=== PATIENT | female | born 1960 | race Hispanic/Latino ===

== ENCOUNTER 2024-04-06 15:22 | Inpatient (IN) | payer OTHER, MEDICAID ==
[~2024-04-06] VITALS: Ht 160 cm; Wt 73.4 kg
[2024-04-06 16:51] LABS: BASOPHILS # (AUTO) 0.03 K/uL (0.00-0.20); BASOPHILS % (AUTO) 0.3 % (0.0-5.0); EOSINOPHILS # (AUTO) 0.35 K/uL (0.00-0.70); HEMATOCRIT 34.1 % (36-48); IMMATURE GRANULOCYTE ABSOLUTE 0.04 K/uL (0-1); LYMPHOCYTES # (AUTO) 1.1 K/uL (1.0-4.8); LYMPHOCYTES % (AUTO) 12.7 % (21.0-51.0); MEAN CORPUSCULAR HEMOGLOBIN 24.9 pg (27.0-33.0); MEAN CORPUSCULAR HGB CONC 31.4 g/dL (32.0-36.0); MEAN CORPUSCULAR VOLUME 79.5 fL (79-99); MONOCYTES # (AUTO) 0.5 K/uL (0.1-1.0); MONOCYTES % (AUTO) 5.7 % (3.0-13.0); NEUTROPHILS # (AUTO) 6.8 K/uL (1.8-7.7); NEUTROPHILS % (AUTO) 76.8 % (40.0-77.0); PLATELET COUNT (AUTO) 292 K/uL (130-400); RED BLOOD CELL COUNT(AUTO) 4.29 MIL/uL (4.00-5.50); RED CELL DISTRIBUTION WIDTH 15.5 % (11.0-15.5); WHITE BLOOD COUNT (AUTO) 8.8 K/uL (4.8-10.8)
[2024-04-06 17:00] LABS: CREATININE 0.7 mg/dL (0.5-1.0); POTASSIUM 3.5 mmol/L (3.5-5.1)
[2024-04-06 17:08] LABS: BILIRUBIN,TOTAL 0.3 mg/dL (0.2-1.0); TOTAL PROTEIN, SERUM 6.7 g/dL (6.0-8.3)
[2024-04-06] MEDS: MORPHINE 4 MG SYG IVP ONE (17:11)
[2024-04-06] MEDS: ONDANSETRON 4MG INJ IVP ONE (17:12)
[2024-04-06] MEDS ORDERED: IOHEXOL-350 75 ML VIAL IV ONE (18:10)
[2024-04-06] MEDS: 0.9%NACL 1000ML 1,000 ML IV ONE (18:15)
[2024-04-06] MEDS: MORPHINE 2 MG SYG IVP PRN (18:18)
[2024-04-06] MEDS: MORPHINE 2 MG SYG IVP ONE (18:18)
[2024-04-06] MEDS ORDERED: SUCRALFATE 1 GM TABLET PO SCH (19:00)
[2024-04-06 19:35] LABS: APPEARANCE,URINE CLEAR (CLEAR); BILIRUBIN,URINE NEGATIVE (NEGATIVE); COLOR,URINE YELLOW (YELLOW); GLUCOSE, URINE (UA) NEGATIVE (NEGATIVE); KETONES,URINE NEGATIVE (NEGATIVE); LEUKOCYTE ESTERASE ,URINE NEGATIVE Leu/uL (NEGATIVE); NITRATE,URINE NEGATIVE (NEGATIVE); OCCULT BLOOD,URINE NEGATIVE (NEGATIVE); PH,URINE 7.5 (5.0-8.0); PROTEIN,URINE 20 mg/dL (NEGATIVE)
[2024-04-06 19:37] LABS: ADD UA MICROSCOPIC YES
[2024-04-06 19:43] LABS: MUCUS,URINE MANY LPF (None Seen); SQUAMOUS EPITHELIAL CELL,UR RARE /HPF (0-2); WBC,URINE 0-1 /HPF (0-1); YEAST,URINE BUDDING MANY /HPF (None Seen)
[2024-04-06] MEDS: PANTOPRAZOLE 40 MG/VIAL IVP ONE (20:18)
[2024-04-06] MEDS: KETOROLAC 15MG/ML VIAL (15MG/ML) IV ONE (20:19)
[2024-04-06] MEDS: BISACODYL 10 MG SUPP.RECT RC ONE (21:09)
[2024-04-06] MEDS: PEG 3350/NA SULF,BICARB,CL/KCL 4000 ML SOLN PO ONE (21:21)
[2024-04-06] MEDS: 1/2 NS 1000ML 1,000 ML IV SCH (21:22)
[2024-04-06 22:30] VITALS: BP 147/82; PULSE 73; RESP 18; O2SAT 97
[2024-04-06] MEDS ORDERED: FERR-82 PO (23:18)
[2024-04-06] MEDS ORDERED: CYCL5TAB PO (23:18)
[2024-04-06] MEDS ORDERED: AEC81 PO (23:18)
[2024-04-06] MEDS ORDERED: FLUO-418 PO (23:18)
[2024-04-06] MEDS ORDERED: GABA300C PO (23:18)
[2024-04-06] MEDS ORDERED: MELO-108 PO (23:18)
[2024-04-06] MEDS ORDERED: SENN-297 PO (23:18)
[2024-04-06] MEDS ORDERED: HYDR-3421 PO (23:18)
[2024-04-06] MEDS ORDERED: ATOR40TA71 PO (23:18)
[2024-04-06] MEDS ORDERED: FAMO20TA8 PO (23:18)
[2024-04-06] MEDS ORDERED: TRAZ-185 PO (23:18)
[2024-04-07 04:00] VITALS: BP 122/72; PULSE 69; RESP 16
[2024-04-07 04:50] LABS: BASOPHILS # (AUTO) 0.03 K/uL (0.00-0.20); BASOPHILS % (AUTO) 0.4 % (0.0-5.0); EOSINOPHILS # (AUTO) 0.31 K/uL (0.00-0.70); EOSINOPHILS % (AUTO) 3.7 % (0.0-8.0); HEMATOCRIT 33.7 % (36-48); IMMATURE GRANULOCYTE ABSOLUTE 0.06 K/uL (0-1); LYMPHOCYTES # (AUTO) 1.1 K/uL (1.0-4.8); LYMPHOCYTES % (AUTO) 13.3 % (21.0-51.0); MEAN CORPUSCULAR HEMOGLOBIN 24.8 pg (27.0-33.0); MEAN CORPUSCULAR HGB CONC 30.9 g/dL (32.0-36.0); MEAN CORPUSCULAR VOLUME 80.2 fL (79-99); MONOCYTES # (AUTO) 0.6 K/uL (0.1-1.0); MONOCYTES % (AUTO) 6.7 % (3.0-13.0); NEUTROPHILS # (AUTO) 6.2 K/uL (1.8-7.7); NEUTROPHILS % (AUTO) 75.2 % (40.0-77.0); PLATELET COUNT (AUTO) 280 K/uL (130-400); RED CELL DISTRIBUTION WIDTH 15.5 % (11.0-15.5); WHITE BLOOD COUNT (AUTO) 8.3 K/uL (4.8-10.8)
[2024-04-07 05:18] LABS: ALBUMIN 2.8 g/dL (3.5-5.0); BILIRUBIN,TOTAL 0.3 mg/dL (0.2-1.0); CREATININE 0.6 mg/dL (0.5-1.0); POTASSIUM 3.9 mmol/L (3.5-5.1); TOTAL PROTEIN, SERUM 6.3 g/dL (6.0-8.3)
[2024-04-07 08:00] VITALS: BP 120/50; PULSE 75; RESP 18
[2024-04-07 12:00] VITALS: BP 114/50; PULSE 68; RESP 17
[2024-04-07 16:00] VITALS: BP 130/65; PULSE 73; RESP 18
[2024-04-07 20:00] VITALS: BP 118/65; PULSE 81; RESP 19
[2024-04-07 20:09] VITALS: O2SAT 97
[2024-04-08] VITALS (7 sets, daily range): BP systolic 133–159; BP diastolic 71–94; PULSE 67–96; RESP 17–20; O2SAT 94–96
[2024-04-08] MEDS ORDERED: HYDROXYZINE 25 MG TABLET PO PRN (17:00)
[2024-04-08] MEDS: KETOROLAC 15MG/ML VIAL (15MG/ML) IM ONE (17:29)
[2024-04-08] MEDS: FAMOTIDINE 20MG TAB PO SCH (20:16)
[2024-04-08] MEDS: TRAZODONE HCL 50 MG TAB PO SCH (20:16)
[2024-04-08] MEDS: GABAPENTIN 300 MG CAPSULE PO SCH (20:20)
[2024-04-08] MEDS: FERROUS SULFATE 325 MG TABLET.DR PO SCH (20:20)
[2024-04-08] MEDS: DOCUSATE SODIUM PO SCH (20:21)
[2024-04-08] MEDS: CYCLOBENZAPRINE HCL 10 MG TABLET PO PRN (20:21)
[2024-04-08] MEDS: SENNOSIDES PO SCH (20:21)
[2024-04-09] VITALS: BP 97/55; PULSE 70; RESP 17
[2024-04-09 04:00] VITALS: BP 142/67; PULSE 67; RESP 19
[2024-04-09 05:11] LABS: HEMATOCRIT 33.1 % (36-48); MEAN CORPUSCULAR HGB CONC 29.6 g/dL (32.0-36.0); MEAN CORPUSCULAR VOLUME 81.1 fL (79-99); RED BLOOD CELL COUNT(AUTO) 4.08 MIL/uL (4.00-5.50); RED CELL DISTRIBUTION WIDTH 15.3 % (11.0-15.5); WHITE BLOOD COUNT (AUTO) 5.6 K/uL (4.8-10.8)
[2024-04-09 05:25] LABS: CREATININE 0.5 mg/dL (0.5-1.0); POTASSIUM 3.4 mmol/L (3.5-5.1)
[2024-04-09 08:00] VITALS: BP 145/58; PULSE 87; RESP 20; O2SAT 94
[2024-04-09] MEDS: MELOXICAM 7.5 MG TABLET PO SCH (08:38)
[2024-04-09] MEDS: FLUOXETINE HCL 20 MG CAPSULE PO SCH (08:38)
[2024-04-09] MEDS: ASPIRIN 81 MG EC TAB PO SCH (08:38)
[2024-04-09] MEDS: ATORVASTATIN 40 MG TABLET PO SCH (08:43)
[2024-04-09] MEDS: DOCUSATE SODIUM 100 MG CAP PO SCH (08:45)
[2024-04-09] MEDS: LACTULOSE 20 GM/30 ML UDCUP ONE (08:45)
[2024-04-09 12:00] VITALS: BP 157/73; PULSE 88; RESP 20
[2024-04-09 16:00] VITALS: BP 107/68; PULSE 91; RESP 20
[2024-04-09 20:00] VITALS: BP 118/57; PULSE 76; RESP 17; O2SAT 98
[2024-04-10] VITALS (8 sets, daily range): BP systolic 105–131; BP diastolic 56–69; PULSE 67–82; RESP 17–20; O2SAT 93–97
[2024-04-10 20:21] LABS: MAGNESIUM 1.9 mg/dL (1.80-2.40); THYROID STIMULATING HORMONE 4.43 uIU/mL (0.36-3.74)
[2024-04-11] VITALS (7 sets, daily range): BP systolic 101–143; BP diastolic 44–64; PULSE 75–87; RESP 17–19; O2SAT 94–96
[2024-04-11] MEDS ORDERED: GADOTERATE MEGLUMINE 10 MMOL/20 ML VIAL IV ONE (10:11)
[2024-04-11] MEDS ORDERED: GABAPENTIN 100 MG CAPSULE PO SCH (14:30)
[2024-04-11 14:53] LABS: AMPHET/METH SCREEN,URINE NEGATIVE (NEGATIVE); BARBITURATE SCREEN, URINE NEGATIVE (NEGATIVE); BENZODIAZEPINES SCREEN,URINE NEGATIVE (NEGATIVE); CANNABINOID SCREEN,URINE NEGATIVE (NEGATIVE); COCAINE SCREEN,URINE NEGATIVE (NEGATIVE); OPIATE SCREEN,URINE NEGATIVE (NEGATIVE); PHENCYCLIDINE SCREEN,URINE NEGATIVE (NEGATIVE)
[2024-04-11] MEDS: ACETAMINOPHEN 500 MG TABLET PO PRN (21:16)
[2024-04-11] MEDS: IBUPROFEN 200 MG TAB PO PRN (21:16)
[2024-04-12] VITALS: BP 101/40; PULSE 80; RESP 17
[2024-04-12 04:00] VITALS: BP 111/59; PULSE 65; RESP 17
[2024-04-12 08:06] VITALS: O2SAT 96
[2024-04-12 09:07] VITALS: BP 121/60; PULSE 64; RESP 17
[2024-04-12] MEDS: LACTULOSE 20 GM/30 ML UDCUP PO PRN (10:10)
[2024-04-12 11:44] VITALS: BP 140/65; PULSE 74; RESP 17
[2024-04-12 17:47] VITALS: BP 138/74; PULSE 80; RESP 18
== END 2024-04-12 19:30 | DRG 390 ==
LOC: EDH 15:22 → OBSVTOIN 21:08 → EDHIP 21:08 → 3BH 22:14
PROVIDERS: ADMIT Internal Medicine; ATTEND Internal Medicine
DX: K56.41 Fecal impaction (principal); E83.51 Hypocalcemia; D64.9 Anemia, unspecified; E87.6 Hypokalemia; D49.6 Neoplasm of unspecified behavior of brain; E78.00 Pure hypercholesterolemia, unspecified; E88.810 Metabolic syndrome; F32.A Depression, unspecified; M54.50 Low back pain, unspecified; G24.9 Dystonia, unspecified; G47.00 Insomnia, unspecified; Z98.1 Arthrodesis status; Z79.899 Other long term (current) drug therapy
CPT/HCPCS: 36415; 70553; 71045; 74177; 80048; 80053; 80305; 81001; 82375; 82525; 82948; 83690; 83735; 83970; 84443; 84484; 85025; 85027; 93005; 96374; 96375; C9113; G0378; J1885; J2270; J2405; Q9967; A9575

== ENCOUNTER → 2024-10-24 | Outpatient (CLI) | payer OTHER, MEDICARE ==
[~2024-10-24] MED LIST: AEC81 PO; ATOR40TA71 PO; CYCL5TAB3 PO; FAMO20TA8 PO; FERR-82 PO; FLUO-418 PO; GABA300C PO; HYDR-3421 PO; MELO-108 PO; SENN-297 PO; TRAZ-185 PO
--- NOTE | 2024-10-24 10:07 | HMCIMG ---
Exam Type: UPPER GI TRACT, WO KUB Clinical Information: EPIGASTRIC PAIN, DYSPHAGIA,UNSPECIFIED, HEARTBURN Comparison: None Findings: Examination is limited by the fact that the patient cannot remain upright. Examination after barium swallowing demonstrates a moderate size hiatal hernia. No gastroesophageal reflux was noted during the examination. Duodenal bulb and sweep show no obstruction or significant acute abnormalities and the gastric mucosa appears preserved. IMPRESSION: Hiatal hernia. No reflux seen. Limited exam.
== END | disposition home or self-care (01) ==
LOC: RAH 08:43
PROVIDERS: ATTEND Internal Medicine
DX: K44.9 Diaphragmatic hernia without obstruction or gangrene (principal); R10.13 Epigastric pain; R13.10 Dysphagia, unspecified; R12 Heartburn
CPT/HCPCS: 74240

== ENCOUNTER 2025-01-31 17:48 | Inpatient (IN) | payer MEDICARE ==
[~2025-01-31] VITALS: Ht 160 cm; Wt 99.8 kg
--- NOTE | 2025-01-31 18:26 | ERN ---
ED Note History of Present Illness Stated Complaint: WEAKNESS AND URINARY SYMPTOMS Chief Complaint: Weakness Time Seen by MD: 17:51 Time Seen by Midlevel: 17:55 Dictation: 65-year-old female brought in via EMS for weakness possible urinary tract infect ion. Patient has a permanent indwelling Tanner states they took cultures couple of days ago but did not have any results. Patient states she has a Tanner due to excoriated skin of the buttocks area from being bed ridden. As per EMS family stated she had an episode of disorientation but is now resolved. Patient has a time he is awake alert and oriented x4, denies having any fevers, nausea, vomiting, back pain. Allergies: Coded Allergies: No Known Drug Allergies (Unverified Allergy, Unknown, 04/06/24) Home Meds Reported Medications Fluoxetine HCl (Fluoxetine HCl) 20 Mg Capsule, 20 MG PO DAILY, CAP 04/06/24 Gabapentin (Neurontin) 300 Mg Capsule, 900 MG PO TID, CAP 04/06/24 Sennosides/Docusate Sodium (Senexon-S 50-8.6 mg Tablet) 8.6 Mg-50 Mg Tablet, 2 EACH PO HS, TAB 04/06/24 Famotidine (Famotidine) 20 Mg Tablet, 20 MG PO HS, TAB 24 Trazodone HCl (Trazodone HCl) 50 Mg Tablet, 50 MG PO HS, TAB 24 Hydroxyzine HCl (Hydroxyzine HCl) 25 Mg Tablet, 25 MG PO BID PRN for ITCHING, TAB 04/06/24 Atorvastatin Calcium (Atorvastatin Calcium) 40 Mg Tablet, 40 MG PO DAILY, TAB 24 Meloxicam (Meloxicam) 15 Mg Tablet, 15 MG PO DAILY, TAB 24 Cyclobenzaprine HCl (Cyclobenzaprine HCl) 5 Mg Tablet, 5 MG PO HS PRN for PAIN, TAB 04/06/24 Aspirin (ASPIRIN 81 MG ECTAB) 81 Mg Ectab, 81 MG PO DAILY, TAB.EC 04/06/24 Ferrous Sulfate (Iron) 325 Mg (65 Mg Iron) Tablet, 325 MG PO TID, TAB 04/06/24 Past Medical History Past Medical History: Other Additional Past Medical Hx: OBESE, INDWELLING TANNER, BED RIDDEN, UNABLE TO AMULATE Surgical History: Other Surgical History Other: MULTIPLE NECK/BACK SX History: Not Applicable Review of System Dictation General: awake, alert, NAD Head/Face: Normocephalic, atraumatic Eyes: PERRL, EOMI, vision at baseline ENT: oral cavity clear, TMs clear, no signs of infection Neck: Trachea midline, supple, no nuchal rigidity Cardiovascular: RRR, normal S1/S2, No MRGs, no JVD Respiratory: CTAB, no respiratory distress, No rales or wheezes Abdomen: Soft, non-tender, non-distended, normal bowel sounds, no guarding or rebound. Skin: Warm, dry, normal turgor, MS/Extremity: Pulses equal, no cyanosis, neurovascular intact, FROM Neuro: COAx4, GCS 15, strength 5/5, CN 2-12 intact, normal cerebellar exam, normal gait, Psych: Normal behavior, mood, and affect normal Review of Systems: was completed Initial Vital Sign VS Vital Signs Date Time Temp Pulse Resp B/P (MAP) Pulse Ox O2 Delivery O2 Flow Rate FiO2 01/31/25 17:49 99.1 89 17 128/60 91 Room Air 0 Physical Exam Dictation General: awake, alert, NAD Head/Face: Normocephalic, atraumatic Eyes: PERRL, EOMI, vision at baseline ENT: oral cavity clear, TMs clear, no signs of infection Neck: Trachea midline, supple, no nuchal rigidity Cardiovascular: RRR, normal S1/S2, No MRGs, no JVD Respiratory: CTAB, no respiratory distress, No rales or wheezes Abdomen: Soft, non-tender, non-distended, normal bowel sounds, no guarding or rebound. Skin: Warm, dry, normal turgor, mild excoriation on buttocks area MS/Extremity: Pulses equal, no cyanosis, neurovascular intact, FROM Neuro: COAx4, GCS 15, strength 5/5, CN 2-12 intact, normal cerebellar exam, normal gait, Psych: Normal behavior, mood, and affect normal : Indwelling catheter noted, dark urine with sediment noted. Results (Laboratory/Radiology) Laboratory/Radiology Laboratory Tests Test 01/31/25 18:23 01/31/25 18:31 Urine Color YELLOW (YELLOW) Urine Appearance CLOUDY (CLEAR) H Urine pH 6.5 (5.0-8.0) Urine Specific [place] 1.007 (1.001-1.031) Urine Protein 20 mg/dL (NEGATIVE) H Urine Glucose (UA) NEGATIVE mg/dL (NEGATIVE) Urine Ketones NEGATIVE mg/dL (NEGATIVE) Urine Occult Blood MODERATE (NEGATIVE) H Urine Nitrate 1+ (NEGATIVE) H Urine Bilirubin NEGATIVE mg/dL (NEGATIVE) Urine Urobilinogen 0.2 mg/dL (0.2-1.0) Urine Leukocyte Esterase 500 Serjio/uL (NEGATIVE) H Urine RBC 6-10 /HPF (0-1) H Urine WBC TNTC /HPF (0-1) H Urine WBC Clumps (Auto) MOD /HPF (0-1) Urine Squamous Epithelial Cells FEW /HPF (0-2) Urine Bacteria MANY /HPF (None Seen) Urine Other Casts 12 /LPF (None Seen) White Blood Count 11.0 K/uL (4.8-10.8) H Red Blood Count 4.96 MIL/uL (4.00-5.50) Hemoglobin 9.7 g/dL (12.0-16.0) L Hematocrit 35.2 % (36-48) L Mean Corpuscular Volume 71.0 fL (79-99) L Mean Corpuscular Hemoglobin 19.6 pg (27.0-33.0) L Mean Corpuscular Hemoglobin Concent 27.6 g/dL (32.0-36.0) L Red Cell Distribution Width 20.3 % (11.0-15.5) H Platelet Count 418 K/uL (130-400) H Mean Platelet Volume 8.5 fL (7.5-10.5) Immature Granulocyte % (Auto) 0.5 % (0-1) Neutrophils (%) (Auto) 80.6 % (40.0-77.0) H Lymphocytes (%) (Auto) 10.2 % (21.0-51.0) L Monocytes (%) (Auto) 3.1 % (3.0-13.0) Eosinophils (%) (Auto) 5.3 % (0.0-8.0) Basophils (%) (Auto) 0.3 % (0.0-5.0) Neutrophils # (Auto) 8.9 K/uL (1.8-7.7) H Lymphocytes # (Auto) 1.1 K/uL (1.0-4.8) Monocytes # (Auto) 0.3 K/uL (0.1-1.0) Eosinophils # (Auto) 0.58 K/uL (0.00-0.70) Basophils # (Auto) 0.03 K/uL (0.00-0.20) Absolute Immature Granulocyte (auto 0.06 K/uL (0-1) Nucleated Red Blood Cells 0.0 % (0.0-0.19) Red Blood Cell Morphology See comments Sodium Level 143 mmol/L (136-145) Potassium Level 2.4 mmol/L (3.5-5.1) *L Chloride Level 100 mmol/L (101-111) L Carbon Dioxide Level 30 mmol/L (21-32) Blood Urea Nitrogen 6 mg/dL (7-18) L Creatinine 0.6 mg/dL (0.5-1.0) Glomerular Filtration Rate Calc 100 mL/min (>90) Random Glucose 102 mg/dL (70-105) Total Calcium 8.7 mg/dL (8.5-10.1) Magnesium Level 1.60 mg/dL (1.80-2.40) L Labs Reviewed?: Yes EKG Comment: EKGs done at 6:08 p.m., atrial fibrillation at a rate of 89 with prolonged QT in terval. CT Scan Comment: [address] [address] IMAGING REPORT Signed PATIENT: GAYLE CHOW MR#: [id number] : 1960 SEX: F AGE: 65 LOCATION: [facility] ORDER 09 STATUS: REG REPORT#: [id number] SERVICE 08 REASON: ams ORDERING PHYSICIAN: JOANN WRAY NP PROCEDURE: HEAD WO - CT HEAD/BRAIN W/O CONTRAST CT HEAD WITHOUT CONTRAST INDICATION: AMS TECHNIQUE: Noncontrast axial helical CT images from the vertex through the skull base using 5 mm slice thickness without contrast material. CT was performed with one or more of the following dose reduction techniques: Automated exposure control, adjustment of the mA and/or kV according to patient size, or use of iterative reconstruction technique. COMPARISON: None FINDINGS: The cerebral and cerebellar hemispheres are age-appropriate in appearance. No evidence for abnormal extra-axial fluid collections or masses. The ventricles and sulci are normal in size and configuration. No evidence for intracranial parenchymal, epidural, or subdural hemorrhage, mass effect or midline shift. The kay-white matter differentiation is well preserved. No secondary evidence to suggest acute ischemia. The brainstem and cerebellum appear normal. The visualized orbits appear unremarkable. The visible paranasal sinuses and mastoid air cells are clear. The calvarium appears normal. IMPRESSION: No acute intracranial process identified. DICTATED BY: TALI RODRIGUEZ MD DATE: 01/31/251935 ELECTRONICALLY SIGNED BY: TALI RODRIGUEZ MD DATE: 01/31/251942 ED Course ED Course Orders Procedure Category Date Status Time Cbc With Differential LAB 01/31/25 Complete 18:06 Basic Metabolic Panel LAB 01/31/25 Complete 18:06 Urinalysis Profile LAB 01/31/25 Complete 18:06 *Nursing CPOE 01/31/25 Transmitted Communication: 18:06 Ct Head/Brain W/O CT 01/31/25 Resulted Contrast 18:09 12 Lead Ekg Tracing- EKG 01/31/25 Complete Technical 18:23 Acetaminophen 325 Tab PHA 01/31/25 In Process (Tylenol 325mg Tab 18:30 Culture Urine ANJU 01/31/25 In Process 18:47 Morphine 2mg Syg PHA 01/31/25 In Process (Morphine 2mg Syg) 18:59 Ondansetron 4mg Inj PHA 01/31/25 In Process (Zofran 4mg Inj) 18:59 Ceftriaxone 1g Vial PHA 01/31/25 In Process (Rocephine 1g Inj) 19:22 Potassium Chloride PHA 01/31/25 In Process 10meq/100ml ([place] 19:30 Magnesium LAB 01/31/25 Complete 19:53 Current Medications Medications (Trade) Dose Ordered Sig/Brunilda Route PRN Reason Start Time Stop Time Status Last Admin Dose Admin Acetaminophen (TYLenol 325MG TAB) 650 mg ONCE PO 01/31/25 18:30 01/31/25 21:30 Ceftriaxone Sodium (ROCEphine 1G INJ) 1 gm ONCE IVPB 01/31/25 19:22 01/31/25 23:59 01/31/25 19:33 Morphine Sulfate (morPHINE 2MG SYG) 2 mg ONCE IVP 01/31/25 18:59 01/31/25 23:59 01/31/25 19:34 Ondansetron HCl (zoFRAN 4MG INJ) 4 mg ONCE IVP 01/31/25 18:59 01/31/25 23:59 01/31/25 19:34 Potassium Chloride 100 ml @ 100 mls/hr ONCE IV 01/31/25 19:30 01/31/25 23:59 01/31/25 19:34 Vital Signs Date Time Temp Pulse Resp B/P (MAP) Pulse Ox O2 Delivery O2 Flow Rate FiO2 01/31/25 17:49 99.1 89 17 128/60 91 Room Air 0 CHADS-VASc Score Response (Comments) Value Sex: Female (+1) 1 CHF History: No (0) 0 Hypertension Hx: No (0) 0 Stroke/TIA/Thromboembolism Hx: No (0) 0 Vascular Disease Hx(prior [place], CAD, PAD, etc.): No (0) 0 Diabetes Hx: No (0) 0 Thromboembolism Risk: High Risk (2-10) Antithrombotic Therapy Recommendations: No Therapy Needed (0-1) Total 1 Medical Decision Making MDM MDM: 65-year-old female brought in via EMS for weakness possible urinary tract infection. Patient has a permanent indwelling Tanner states they took cultures couple of days ago but did not have any results. Patient states she has a Tanner due to excoriated skin of the buttocks area from being bed ridden. As per EMS family stated she had an episode of disorientation but is now resolved. Patient has a time he is awake alert and oriented x4, denies having any fevers, nausea, vomiting, back pain.CBC shows mild leukocytosis of 11, microcytic anemia, thrombocythemia. Chemistry shows hypokalemia at 2.4, normal kidney function. Magnesium mildly low at 1.6. UA shows evidence of urinary tract infection. Potassium replacement, and antibiotics initiated in the emergency room. Also primary nurse spoke to patient's daughter, states patient does not have a hi story of AFib. Patient will be admitted for urinary tract infection, hypokalemia and new onset AFib. Spoke to VINNY Vieyra for hospitalist, ambaray to admit the patient. Differential diagnosis: Urinary tract infection, pyelonephritis, CVA Rationale: Tests considered and ordered secondary to shared decision making include: Previous outside records reviewed: Old ER visits. Risk of complication and/or morbidity or mortality of patient management: None Medications-Per medication reconciliation Need for hospitalization: Patient does not meet criteria for hospitalization. Need for emergency major/minor surgery: No There are no social concerns with this patient. Prescription drug management Prescriptions will include symptomatic care Patient's prior external medical records from other ER visits were reviewed by me as indicated. Prior testing and results from previous visits were reviewed. Prior tests were taken into account with medical decision making and resource utilization, independent historian/historians were used to obtain complete medical history. I independently interpreted the test that were performed, results were reviewed by me and considered findings on radiology if ordered. Medical management and examination interpretation discussions were had by me w ith other qualified healthcare professionals as indicated for the patient's care. DX & DISP Disposition: Inpatient Decision to Admit Date: Jan 31, 2025 Decision to Admit Time: 20:19 Departure Impression: Primary Impression: Urinary tract infection Additional Impressions: Hypokalemia, Atrial fibrillation Condition: Stable Referrals: NONE (PCP) I have reviewed the case, and I agree with, Diagnosis and Plan JOANN WRAY NP Jan 31, 2025 18:26
--- NOTE | 2025-01-31 18:28 | EKG ---
[facility] Test Date: 2025-01-31 Test Time: 18:08:06 Pat Name: GAYLE CHOW Department: ED Room: 322 Gender: F Addresser: [id number] : 1960 Requested By: JOANN WRAY Order Number: [id number] Reading MD: Maurilio Garg Measurements Intervals [place] Rate: 89 P: 0 KS: 0 QRS: 11 QRSD: 95 T: 32 QT: 494 QTc: 602 Interpretive Statements Normal Sinus Rhythm Prolonged QT interval Electronically Signed On 02-05-2025 07:11:44 CDT by Maurilio Garg Please click the below link to view image of tracing.
[2025-01-31] MEDS: acetaMINOPHEN 325 MG TAB PO SCH (18:30)
[2025-01-31 18:40] LABS: APPEARANCE,URINE CLOUDY (CLEAR); BILIRUBIN,URINE NEGATIVE (NEGATIVE); COLOR,URINE YELLOW (YELLOW); GLUCOSE, URINE (UA) NEGATIVE (NEGATIVE); KETONES,URINE NEGATIVE (NEGATIVE); LEUKOCYTE ESTERASE ,URINE 500 Leu/uL (NEGATIVE); NITRATE,URINE 1+ (NEGATIVE); OCCULT BLOOD,URINE MODERATE (NEGATIVE); PH,URINE 6.5 (5.0-8.0); PROTEIN,URINE 20 mg/dL (NEGATIVE); UROBILINOGEN,URINE 0.2 mg/dL (0.2-1.0)
[2025-01-31 18:47] LABS: ADD UA MICROSCOPIC YES
[2025-01-31 18:51] LABS: BASOPHILS # (AUTO) 0.03 K/uL (0.00-0.20); BASOPHILS % (AUTO) 0.3 % (0.0-5.0); EOSINOPHILS # (AUTO) 0.58 K/uL (0.00-0.70); EOSINOPHILS % (AUTO) 5.3 % (0.0-8.0); HEMATOCRIT 35.2 % (36-48); IMMATURE GRANULOCYTE ABSOLUTE 0.06 K/uL (0-1); LYMPHOCYTES # (AUTO) 1.1 K/uL (1.0-4.8); LYMPHOCYTES % (AUTO) 10.2 % (21.0-51.0); MEAN CORPUSCULAR HEMOGLOBIN 19.6 pg (27.0-33.0); MEAN CORPUSCULAR HGB CONC 27.6 g/dL (32.0-36.0); MONOCYTES # (AUTO) 0.3 K/uL (0.1-1.0); MONOCYTES % (AUTO) 3.1 % (3.0-13.0); NEUTROPHILS # (AUTO) 8.9 K/uL (1.8-7.7); NEUTROPHILS % (AUTO) 80.6 % (40.0-77.0); PLATELET COUNT (AUTO) 418 K/uL (130-400); RED BLOOD CELL COUNT(AUTO) 4.96 MIL/uL (4.00-5.50); RED CELL DISTRIBUTION WIDTH 20.3 % (11.0-15.5)
[2025-01-31 18:53] LABS: BACTERIA,URINE MANY /HPF (None Seen); MUCUS,URINE RARE LPF (None Seen); OTHER CASTS, URINE 12 /LPF (None Seen); SQUAMOUS EPITHELIAL CELL,UR FEW /HPF (0-2); WBC CLUMP MOD /HPF (0-1); WBC,URINE TNTC /HPF (0-1)
[2025-01-31 19:03] LABS: CREATININE 0.6 mg/dL (0.5-1.0)
[2025-01-31 19:11] LABS: POTASSIUM 2.4 mmol/L (3.5-5.1)
--- NOTE | 2025-01-31 19:11 | NUR ---
advised luisito that potassium of 2.4 , pending new orders
[2025-01-31] MEDS: morPHINE 2 MG SYG IVP SCH (19:28)
[2025-01-31] MEDS: cefTRIAXone 1G VIAL IVPB SCH (19:33)
[2025-01-31] MEDS: PoTASSium chloRIDE 10MEQ/100ML 100 ML IV SCH (19:34)
[2025-01-31] MEDS: ondanSETRON 4MG INJ IVP SCH (19:34)
--- NOTE | 2025-01-31 19:43 | HMCIMG ---
CT HEAD WITHOUT CONTRAST INDICATION: AMS TECHNIQUE: Noncontrast axial helical CT images from the vertex through the skull base using 5 mm slice thickness without contrast material. CT was performed with one or more of the following dose reduction techniques: Automated exposure control, adjustment of the mA and/or kV according to patient size, or use of iterative reconstruction technique. COMPARISON: None FINDINGS: The cerebral and cerebellar hemispheres are age-appropriate in appearance. No evidence for abnormal extra-axial fluid collections or masses. The ventricles and sulci are normal in size and configuration. No evidence for intracranial parenchymal, epidural, or subdural hemorrhage, mass effect or midline shift. The kay-white matter differentiation is well preserved. No secondary evidence to suggest acute ischemia. The brainstem and cerebellum appear normal. The visualized orbits appear unremarkable. The visible paranasal sinuses and mastoid air cells are clear. The calvarium appears normal. IMPRESSION: No acute intracranial process identified.
--- NOTE | 2025-01-31 20:23 | HP ---
History of Present Illness Reason for Visit: [facility] History of Present Illness Ms. Flowers is a 65-year-old female that was seen and examined today on 01/31/2025. Patient is a poor historian. The following was obtained from medical records available to me from a prior admission and emergency room physician report. According to emergency room physician: 65-year-old female brought in via EMS for weakness possible urinary tract infection. Patient has a permanent indwelling Dodd states they took cultures couple of days ago but did not have any results. Patient states she has a Dodd due to excoriated skin of the buttocks area from being bed ridden. As per EMS family stated she had an episode of disorientation but is now resolved. Patient has a time he is awake alert and oriented x4, denies having any fevers, nausea, vomiting, back pain. Today in the emergency department potassium 2.4, magnesium 1.6, urinalysis positive for leukocyte esterase and WBCs too many to count. Emergency room physician recommended that patient be admitted with a diagnosis of hypokalemia and UTI. Past Medical History Patient History: Unknown MOTHER FATHER ADDITIONAL PAST MEDICAL HISTORY: [Hyperlipidemia] SOCIAL HISTORY: [Negative for smoking, alcohol use, drug use. Patient has not walked for one year.] SURGICAL HISTORY: [Spinal decompression, spinal injury] Review of Systems General: No Fever, No Chills, No Night Sweats, No Fatigue, No Malaise, No Appetite, No Other HEENT: No Head Aches, No Visual Changes, No Eye Pain, No Ear Pain, No Dysphasia, No Sinus Congestion, No Post Nasal Drip, No Sore Throat, No Other Pulmonary: No Dyspnea, No Cough, No Pleuritic Chest Pain, No Other Cardiovascular: No: Chest Pain, Palpitations, Orthopnea, Paroxysmal Noc. Dyspnea, Edema, Lt Headedness, Other Gastrointestinal: No: Nausea, Vomiting, Abdominal Pain, Diarrhea, Constipation, Melena, Hematochezia, Other Genitourinary: No Dysuria, No Frequency, No Incontinence, No Hematuria, No Retention, No Other Musculoskeletal: No: other, neck pain, shoulder pain, arm pain, back pain, hand pain, leg pain, foot pain Skin: No Urticaria, No Rash, No Other Neurological: Confusion; No: Weakness, Numbness, Incoordination, Change in speech, Seizures, Other Allergies: Coded Allergies: No Known Drug Allergies (Unverified Allergy, Unknown, 04/06/24) Scheduled Aspirin (Aspirin 81 Mg Ectab), 81 MG PO DAILY, (Reported) Atorvastatin Calcium (Atorvastatin Calcium), 40 MG PO DAILY, (Reported) Famotidine (Famotidine), 20 MG PO HS, (Reported) Ferrous Sulfate (Iron), 325 MG PO TID, (Reported) Fluoxetine HCl (Fluoxetine HCl), 20 MG PO DAILY, (Reported) Gabapentin (Neurontin), 900 MG PO TID, (Reported) Meloxicam (Meloxicam), 15 MG PO DAILY, (Reported) Sennosides/Docusate Sodium (Senexon-S 50-8.6 mg Tablet), 2 EACH PO HS, (Reported) Trazodone HCl (Trazodone HCl), 50 MG PO HS, (Reported) Scheduled PRN Cyclobenzaprine HCl (Cyclobenzaprine HCl), 5 MG PO HS PRN for PAIN, (Reported) Hydroxyzine HCl (Hydroxyzine HCl), 25 MG PO BID PRN for ITCHING, (Reported) Exam Vital Signs Vital Signs Date Time Temp Pulse Resp B/P (MAP) Pulse Ox O2 Delivery O2 Flow Rate FiO2 01/31/25 17:49 99.1 89 17 128/60 91 Room Air 0 General Appearance: Alert (x2), Cooperative HEENT: Atraumatic, EOMI Respiratory: Clear to auscultation, Normal air movement, NL respiratory effort Cardiovascular: Normal S1, Normal S2 Abdominal: Normal bowel sounds, Soft, No tenderness Extremities: Other (Weakness to bilateral lower extremities) Skin: No significant lesion Neuro: Normal speech Psych/Mental Status: Mental status NL, Mood NL, Thoughts/Content NL Assessment/Plan ASSESSMENT: [ Metabolic encephalopathy, POA Hypokalemia, POA Hypomagnesemia, POA Urinary tract infection, POA Hyperlipidemia History of spinal injury Bed-bound status] PLAN: [ Admit patient to medical floor as inpatient status. Place patient on telemetry monitoring. Fall precautions. Replace potassium per hospital protocol. Replace magnesium per protocol. Check urine culture, follow up with the results. Empiric antibiotic therapy with Rocephin. Consider resuming home medications once they have been reconciled. GI prophylaxis, famotidine DVT prophylaxis, Lovenox ADVANCED CARE PLANNING 1. Which of the following were discussed? Hospice Care - Yes Therapeutic options - Yes Advance Directives - Yes - patient states she does not have any advance directives in place at this time. Other discussions - patient wishes to remain a full code at this time 2. Discussed with who? Patient 3. Voluntary nature of this service was explained to the patient? Yes 4. Amount of time spent - ____ 16 minutes ___ 5. Reviewed by Physician? (if this service was performed by NPP) Yes This document was generated in part using voice recognition software, occasional wrong word or sound alike substitutions may have occurred due to the inherent limitations of voice recognition software. Read the chart carefully and recognize using context, where the substitutions have occurred. Although every effort was made to edit the content, ice skating teacher and typing errors may occur ATTESTATION BY PHYSICIAN I have seen and examined the patient. I reviewed the documentation, medical decision making, and treatment plan as noted by the mid-level provider above. I agree with the findings and plan of care. JENNY NAVARRO [facility] Jan 31, 2025 20:23
[2025-01-31] MEDS: cefTRIAXone 1G VIAL IV SCH (20:25)
[2025-01-31] MEDS ORDERED: PoTASSium chloRIDE 20MEQ ER 20 MEQ ERTAB PO PRN (20:30)
[2025-01-31] MEDS ORDERED: acetaMINOPHEN 325 MG TAB PO PRN (20:30)
[2025-01-31] MEDS ORDERED: hydrALAZine 20MG/ML VIAL IV PRN (20:30)
[2025-01-31] MEDS: MAGNESIUM 2GM PREMIX 50ML 50 ML IV PRN (21:22)
[2025-02-01] MEDS: PoTASSium chloRIDE 20MEQ/100ML 100 ML IV PRN (00:18)
[2025-02-01] MEDS: ondanSETRON 4MG INJ IV PRN (02:57)
[2025-02-01] MEDS: morPHINE 4 MG SYG IVP PRN (02:58)
--- NOTE | 2025-02-01 07:00 | NUR ---
Assumed patients care.
--- NOTE | 2025-02-01 07:30 | NUR ---
Patient being rude to staff, refusing blood work, non compliant with treatment. Educated patient on the importance to follow physicians instructions. Patient verbalized understanding.
[2025-02-01] MEDS: PoTASSium chl 10% ELIXIR 20MEQ 20 MEQ/15 ML UDCUP PO PRN (08:19)
[2025-02-01] MEDS: FAMOTIDINE 20MG TAB PO SCH (08:19)
--- NOTE | 2025-02-01 08:19 | NUR ---
PT ASKED FOR A CUP OF ICE WATER.PLACED HER CUP OF ICE WATER ON BEDSIDE TABLE WITHIN REACH.PT KNOCKED CUP OF TABLE STATING "THAT WAS NOT ICE WATER". SPILAGE CLEANED UP. ICE WATER REPLACED AND HANDED TO PT.
[2025-02-01] MEDS: ENOXAPARIN SODIUM 40 MG/0.4 ML SYRINGE SQ SCH (08:20)
--- NOTE | 2025-02-01 08:33 | NUR ---
Asked patient to ask family member to bring home medication list.
--- NOTE | 2025-02-01 08:51 | PN ---
[facility] PROGRESS NOTE Date of Service: Feb 01, 2025 Time of Service: 08:49 SUBJECTIVE: Ms. Flowers is a 65-year-old female that was seen and examined today on 01/31/2025. Patient is a poor historian. The following was obtained from medical records available to me from a prior admission and emergency room physician report. According to emergency room physician: 65-year-old female brought in via EMS for weakness possible urinary tract infection. Patient has a permanent indwelling Dodd states they took cultures couple of days ago but did not have any results. Patient states she has a Dodd due to excoriated skin of the buttocks area from being bed ridden. As per EMS family stated she had an episode of disorientation but is now resolved. Patient has a time he is awake alert and oriented x4, denies having any fevers, nausea, vomiting, back pain. Today in the emergency department potassium 2.4, magnesium 1.6, urinalysis positive for leukocyte esterase and WBCs too many to count. Emergency room physician recommended that patient be admitted with a diagnosis of hypokalemia and UTI. 02/01/25 84-year-old female was admitted via EMS for evaluation of generalized weakness and suspected UTI. The patient is bed bound for the past year, and has an indwelling Dodd catheter due to excoriated buttocks from prolonged immobility. She reports vague joint pain weakness arms knees hips and stiffness in hands, with frequent requests for morphine. No clear focal tenderness noted. Via EMS reported a transient episode of disorientation which has since resolved. The patient is currently awake, alert but but not clearly comprehending her condition and her symptoms. And denies fever, chills, nausea, vomiting or bowel incontinence. She has a history of AFib, anemia and chronic constipation and prior hospitalization for fecal impaction. CT abdomen on 04/06/2024 revealed hiatal hernia, fluid-filled distal esophagus and an L3 vertebral fracture she denies chest pain or shortness of breath or palpitations. She complains of dark urine. Appetite and fluid intake unclear due to altered functional status. REVIEW OF SYSTEMS CONSTITUTIONAL: Denies fevers, chills, or night sweats. No unintentional weight loss reported. NEUROLOGICAL: Denies headache, amaurosis fugax, motor weakness, sensory deficit, vertigo/spinning sensation, gait abnormalities, or tremors. ENT: No hearing loss, otalgia, otorrhea, rhinitis, rhinorrhea, hoarseness, or sore throat. CARDIOVASCULAR: Denies any exertional angina, dyspnea on exertion, orthopnea, paroxysmal nocturnal dyspnea, palpitations, life-threatening arrhythmias, claudication. PULMONARY: Denies any shortness of breath, cough, phlegm/sputum, hemoptysis, pleuritic chest pain. SLEEP: Denies morning headaches, daytime somnolence or napping. Denies difficulty falling asleep, staying asleep, waking from sleep. Denies knowledge of snoring. GASTROINTESTINAL: Denies any type of dysphagia to either liquids or solids. Denies nausea, vomiting, pyrosis, early satiety, abdominal pain, diarrhea, constipation, or changes in stool consistency or caliber. Denies coffee-ground emesis, hematemesis, hematochezia, or melanotic stools. GENITOURINARY: Denies frequency, urgency, nocturia, hematuria or incontinence (Storage/Irritative symptoms.) Low urinary stream, straining to void, urinary intermittency or hesitancy, splitting of the voiding stream, terminal dribbling. ENDOCRINOLOGIC: Denies polyuria, polydipsia, polyphagia or heat/cold intolerances. HEMATOLOGIC: Denies thrombophilia/previous clots, or coagulopathy/bleeding disorders. ONCOLOGIC: Denies personal history of malignancy. DERMATOLOGIC: Denies rashes or pruritus. PSYCHIATRIC: Denies any suicidal or homicidal ideation. Denies hallucinations. PHYSICAL EXAM GENERAL APPEARANCE: The patient is awake, alert, and oriented, in no acute cardiopulmonary distress. NEUROLOGICAL: Cranial nerves II-XII grossly intact. Motor is 5/5 in bilateral upper and lower extremities proximal to distal. No sensory deficits. HEENT: Face is symmetric. Pupils are equal and reactive. Extraocular movements are intact. NECK: Supple. No JVD. No thyromegaly. No submental, submandibular, pre-/postauricular, occipital or supraclavicular lymphadenopathy. CHEST: Normal chest expansion. No Telemetry. LUNGS: Absence of any rales, rhonchi or any wheezing. CARDIOVASCULAR: Regular. S1 and S2 normal. No appreciable rubs, murmurs or gallops. ABDOMEN: Soft, nontender, and nondistended. There is no rebound, voluntary guarding, or rigidity. : Deferred. No Dodd. EXTREMITIES: Non-edematous and not cyanotic. No clubbing. Good capillary refill. SKIN: No skin breakdown. Vital Signs (last 8hr) Date Time Temp Pulse Resp B/P (MAP) Pulse Ox O2 Delivery O2 Flow Rate FiO2 02/01/25 07:00 98.4 88 15 126/57 94 Room Air* 0 21 02/01/25 06:02 74 14 137/64 96 Room Air* 0 21 02/01/25 03:49 74 16 124/67 96 Room Air* 0 21 LABS: Laboratory: Test 01/31/25 23:38 01/31/25 18:31 01/31/25 18:23 Range/Units Potassium Level 2.6 *L 3.5-5.1 mmol/L White Blood Count 11.0 H 4.8-10.8 K/uL Red Blood Count 4.96 4.00-5.50 MIL/uL Hemoglobin 9.7 L 12.0-16.0 g/dL Hematocrit 35.2 L 36-48 % Mean Corpuscular Volume 71.0 L 79-99 fL Mean Corpuscular Hemoglobin 19.6 L 27.0-33.0 pg Mean Corpuscular Hemoglobin Concent 27.6 L 32.0-36.0 g/dL Red Cell Distribution Width 20.3 H 11.0-15.5 % Platelet Count 418 H 130-400 K/uL Mean Platelet Volume 8.5 7.5-10.5 fL Immature Granulocyte % (Auto) 0.5 0-1 % Neutrophils (%) (Auto) 80.6 H 40.0-77.0 % Lymphocytes (%) (Auto) 10.2 L 21.0-51.0 % Monocytes (%) (Auto) 3.1 3.0-13.0 % Eosinophils (%) (Auto) 5.3 0.0-8.0 % Basophils (%) (Auto) 0.3 0.0-5.0 % Neutrophils # (Auto) 8.9 H 1.8-7.7 K/uL Lymphocytes # (Auto) 1.1 1.0-4.8 K/uL Monocytes # (Auto) 0.3 0.1-1.0 K/uL Eosinophils # (Auto) 0.58 0.00-0.70 K/uL Basophils # (Auto) 0.03 0.00-0.20 K/uL Absolute Immature Granulocyte (auto 0.06 0-1 K/uL Nucleated Red Blood Cells 0.0 0.0-0.19 % Red Blood Cell Morphology See comments Sodium Level 143 136-145 mmol/L Chloride Level 100 L 101-111 mmol/L Carbon Dioxide Level 30 21-32 mmol/L Blood Urea Nitrogen 6 L 7-18 mg/dL Creatinine 0.6 0.5-1.0 mg/dL Glomerular Filtration Rate Calc 100 >90 mL/min Random Glucose 102 70-105 mg/dL Total Calcium 8.7 8.5-10.1 mg/dL Magnesium Level 1.60 L 1.80-2.40 mg/dL Urine Color YELLOW YELLOW Urine Appearance CLOUDY H CLEAR Urine pH 6.5 5.0-8.0 Urine Specific [place] 1.007 1.001-1.031 Urine Protein 20 H NEGATIVE mg/dL Urine Glucose (UA) NEGATIVE NEGATIVE mg/dL Urine Ketones NEGATIVE NEGATIVE mg/dL Urine Occult Blood MODERATE H NEGATIVE Urine Nitrate 1+ H NEGATIVE Urine Bilirubin NEGATIVE NEGATIVE mg/dL Urine Urobilinogen 0.2 0.2-1.0 mg/dL Urine Leukocyte Esterase 500 H NEGATIVE Serjio/uL Urine RBC 6-10 H 0-1 /HPF Urine WBC TNTC H 0-1 /HPF Urine WBC Clumps (Auto) MOD 0-1 /HPF Urine Squamous Epithelial Cells FEW 0-2 /HPF Urine Bacteria MANY None Seen /HPF Urine Other Casts 12 None Seen /LPF Current Medications Medications (Trade) Dose Ordered Sig/Brunilda Route PRN Reason Start Time Stop Time Status Last Admin Dose Admin Acetaminophen (TYLenol 325MG TAB) 650 mg ONCE PO 01/31/25 18:30 01/31/25 21:30 DC Acetaminophen (TYLenol 325MG TAB) 650 mg Q6H PRN PO TEMPERATURE GREATER THAN 101.5 01/31/25 20:30 03/02/25 20:29 Ceftriaxone Sodium (ROCEphine 1G INJ) 1 gm ONCE IVPB 01/31/25 19:22 01/31/25 23:59 DC 01/31/25 19:33 1 GM Ceftriaxone Sodium (ROCEphine 1G INJ) 1 gm Q24H IV 01/31/25 20:30 02/10/25 20:29 Enoxaparin Sodium (Lovenox) 40 mg DAILY SQ 02/01/25 09:00 03/03/25 08:59 02/01/25 08:20 40 MG Famotidine (Pepcid 20mg Tab) 20 mg DAILY PO 02/01/25 09:00 03/03/25 08:59 02/01/25 08:19 20 MG Hydralazine HCl (APRESOLine 20MG INJ) 10 mg Q6H PRN IV For:SBP above 160;DBP above 90 01/31/25 20:30 03/02/25 20:29 Magnesium Sulfate 50 ml @ 0 mls/hr PROTOCOL PRN IV h 01/31/25 20:30 03/02/25 20:29 01/31/25 21:22 25 MLS/HR Morphine Sulfate (morPHINE 2MG SYG) 2 mg ONCE IVP 01/31/25 18:59 01/31/25 23:59 DC 01/31/25 22:09 2 MG Morphine Sulfate (morPHINE 4MG SYG) 2 mg Q4H PRN IVP SEVERE PAIN (7-10) 01/31/25 20:30 02/07/25 20:29 02/01/25 08:20 2 MG Ondansetron HCl (zoFRAN 4MG INJ) 4 mg ONCE IVP 01/31/25 18:59 01/31/25 23:59 DC 01/31/25 19:34 4 MG Ondansetron HCl (zoFRAN 4MG INJ) 4 mg Q6H PRN IV NAUSEA/VOMITING 01/31/25 20:30 03/02/25 20:29 02/01/25 02:57 4 MG Potassium Chloride 100 ml @ 100 mls/hr AD PRN IV POTASSIUM PROTOCOL 01/31/25 20:30 03/02/25 20:29 02/01/25 00:18 100 MLS/HR Potassium Chloride 100 ml @ 100 mls/hr ONCE IV 01/31/25 19:30 01/31/25 23:59 DC 01/31/25 19:34 100 MLS/HR Potassium Chloride (K-Dur/Klor-Con 20meq) 20 meq AD PRN PO POTASSIUM PROTOCOL 01/31/25 20:30 03/02/25 20:29 Potassium Chloride (KCl 10% Elixir 20meq/15ml) 20 meq AD PRN PO POTASSIUM PROTOCOL 01/31/25 20:30 03/02/25 20:29 02/01/25 08:19 20 MEQ DIAGNOSTICS / RADIOLOGY: [ ] PATIENT: GAYLE FLOWERS MR#: [id number] : 1960 SEX: F AGE: 65 LOCATION: [facility] ORDER 09 STATUS: REG REPORT#: [id number] SERVICE 08 REASON: ams ORDERING PHYSICIAN: JOANN WRAY NP PROCEDURE: HEAD WO - CT HEAD/BRAIN W/O CONTRAST CT HEAD WITHOUT CONTRAST INDICATION: AMS TECHNIQUE: Noncontrast axial helical CT images from the vertex through the skull base using 5 mm slice thickness without contrast material. CT was performed with one or more of the following dose reduction techniques: Automated exposure control, adjustment of the mA and/or kV according to patient size, or use of iterative reconstruction technique. COMPARISON: None FINDINGS: The cerebral and cerebellar hemispheres are age-appropriate in appearance. No evidence for abnormal extra-axial fluid collections or masses. The ventricles and sulci are normal in size and configuration. No evidence for intracranial parenchymal, epidural, or subdural hemorrhage, mass effect or midline shift. The kay-white matter differentiation is well preserved. No secondary evidence to suggest acute ischemia. The brainstem and cerebellum appear normal. The visualized orbits appear unremarkable. The visible paranasal sinuses and mastoid air cells are clear. The calvarium appears normal. IMPRESSION: No acute intracranial process identified. DICTATED BY: TALI RODRIGUEZ MD DATE: 01/31/251935 ELECTRONICALLY SIGNED BY: TALI RODRIGUEZ MD DATE: 01/31/251942 RUN DATE: 02/01/25 [facility] [address] RUN TIME: [id number] [address], [place] [address] Department of Laboratories [facility] # [id number] Behavioral Health Professional: Gregoria Dove DO Specimen Report PATIENT: GAYLE FLOWERS ACCT: [id number] LOC: [facility] U: [id number] AGE/SX: 65/F ROOM: ED RE01/31/[address]: ANNIE COPELAND MD : 1960 BED: 12 DIS: STATUS: ADM IN TLOC: SPEC: [id number] REN: 01/31/25 STATUS: RES REQ: [id number] RECD: 02/01/[address]: JOANN WRAY NP SOURCE: [facility] ENTR: 02/01/[address]: BETSY SPDESC: CLEAN CAT ORDERED: AERO ID & SENS Procedure Result Jose Date-Time AEROBIC ID & SENSITIVITIES Preliminary 02/01/25-1007 MRL COLONY DESCRIPTION: DAY 1: COLONY COUNT: >100,000 CFU/ML GRAM NEGATIVE RODS IDENTIFICATION AND SENSITIVITY TO FOLLOW Test(s) performed by: [facility] [address] [place] [address] @ [facility] Test Performed at: [facility] [address], [place], [place] Medical Batch Tester: Adam Kinney D.O. ASSESSMENT: Complicated UTI with indwelling Dodd catheter Metabolic encephalopathy Hypokalemia Hypomagnesemia Atrial fibrillation chronic, rate controlled currently, on Lovenox Anemia, likely iron deficiency Generalized weakness Bed-bound status with pressure injury risk History of constipation/fecal impaction Pain likely functional or neuropathic Disorientation Functional quadriplegia PLAN: [ ] Admit patient to medical floor as inpatient status. Place patient on telemetry monitoring. Fall precautions. Replace potassium per hospital protocol. Replace magnesium per protocol. Check urine culture, follow up with the results. Empiric antibiotic therapy with Rocephin. Consider resuming home medications once they have been reconciled. GI prophylaxis, famotidine DVT prophylaxis, Lovenox Infectious disease Continue ceftriaxone1 g IV Q 24 H. Await culture sensitivities. Ddod catheter exchange or removal if feasible. WBC and vital monitoring. Consider ID consult if culture is resistance are patient deteriorates. Renal/electrolytes. IV KCl 40 mEq in NS over4 hours into 2, recheck q.4h. Placed on a the facility electrolytes replenishment and monitoring protocol IV MgSO42 g over2 hours, recheck magnesium q.8h. Strict Is&Os, monitor BUN creatinine trends. Cardiology Continue Lovenox 40 mg subQ q.d. or adjusted therapeutic if not prophylactic. Continue rate control if needed p.r.n. with metoprolol. No need for stat Cardiology unless unstable. Echocardiogram . Hepatology Ordered iron studies, TIBC, ferritin. Consider oral [id number] mg daily pending results. Monitor H&H daily. GI/bowel movement Continue famotidine 20 mg p.o. q.d.. Add docusate/senna p.r.n. to prevent impaction. Monitor for BM every48 H. Neurology/psych Frequent mentation daily No current need for neurology consult. If continued request for morphine, consider psych evaluation. Pain management Hold opioids unless objective pain source. Continue IV Tylenol 650 mg q.6h p.r.n.. Reassess daily. Dermatology/skin care Wound care consult for sacral excoriation. Barrier creams, offloading, turning schedule. Pressure injury prevention bundle. Mobility/nutrition PT/OT referral Assess nutritional intake. Consider dietitian evaluation. ATTESTATION BY PHYSICIAN I have seen and examined the patient. I reviewed the documentation, medical decision making, and treatment plan as noted by the resident above. I agree with the findings and plan of care. Zenon Goncalves MD, RAGHAVA R MD Feb 01, 2025 08:51
--- NOTE | 2025-02-01 09:26 | NUR ---
patient refuses lab work and vitals. stated : "Leave me alone !!"
[2025-02-01] MEDS ORDERED: PLEC3TAB2 PO (09:40)
[2025-02-01] MEDS ORDERED: FURO40TA5 PO (09:40)
[2025-02-01] MEDS ORDERED: ZOLP-685 PO (09:40)
[2025-02-01] MEDS ORDERED: PANT40TA54 PO (09:40)
[2025-02-01] MEDS ORDERED: SUCR1TAB PO (09:40)
[2025-02-01 09:55] LABS: BASOPHILS # (AUTO) 0.02 K/uL (0.00-0.20); BASOPHILS % (AUTO) 0.2 % (0.0-5.0); EOSINOPHILS # (AUTO) 0.57 K/uL (0.00-0.70); EOSINOPHILS % (AUTO) 7.1 % (0.0-8.0); HEMATOCRIT 33.8 % (36-48); IMMATURE GRANULOCYTE ABSOLUTE 0.04 K/uL (0-1); LYMPHOCYTES # (AUTO) 0.9 K/uL (1.0-4.8); LYMPHOCYTES % (AUTO) 10.7 % (21.0-51.0); MEAN CORPUSCULAR HEMOGLOBIN 19.8 pg (27.0-33.0); MEAN CORPUSCULAR HGB CONC 27.8 g/dL (32.0-36.0); MEAN CORPUSCULAR VOLUME 71.3 fL (79-99); MONOCYTES # (AUTO) 0.3 K/uL (0.1-1.0); MONOCYTES % (AUTO) 3.5 % (3.0-13.0); NEUTROPHILS # (AUTO) 6.3 K/uL (1.8-7.7); PLATELET COUNT (AUTO) 413 K/uL (130-400); RED BLOOD CELL COUNT(AUTO) 4.74 MIL/uL (4.00-5.50); RED CELL DISTRIBUTION WIDTH 20.1 % (11.0-15.5); WHITE BLOOD COUNT (AUTO) 8.1 K/uL (4.8-10.8)
[2025-02-01 10:10] LABS: CREATININE 0.6 mg/dL (0.5-1.0); MAGNESIUM 2.1 mg/dL (1.80-2.40); PHOSPHORUS 3.7 mg/dL (2.5-4.9)
[2025-02-01 10:33] LABS: POTASSIUM 2.7 mmol/L (3.5-5.1)
--- NOTE | 2025-02-01 12:00 | NUR ---
Patient refused vital signs to be taken and blood drawn.Patient refused potassium iv, po or elixir. Patient refuses PIV. Does not want to sign refusal form. Notify charge nurse Mr. Noel.
--- NOTE | 2025-02-01 12:58 | EKG ---
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
[2025-02-01] MEDS: acetaMINOPHEN 1,000 MG/100 ML VIAL IVPB SCH (14:02)
--- NOTE | 2025-02-01 15:16 | NUR ---
patient refuses oral potassium, and iv potassium.
[2025-02-01] MEDS ORDERED: hydrOXYzine 25 MG TABLET PO PRN (17:00)
[2025-02-01] MEDS ORDERED: ZOLPidem TARTrate 5 MG TAB PO PRN (17:30)
[2025-02-01] MEDS ORDERED: acetaMINOPHEN 1,000 MG/100 ML VIAL IVPB SCH (18:00)
[2025-02-01] MEDS ORDERED: acetaMINOPHEN 1,000 MG/100 ML VIAL IVPB PRN (19:30)
[2025-02-01 19:50] VITALS: BP 117/47; PULSE 90; RESP 18; TEMP 98.2
--- NOTE | 2025-02-01 19:57 | NUR ---
Report given to nurse Parsons.
[2025-02-01 20:00] VITALS: O2SAT 94
[2025-02-01] MEDS: FERROUS SULFATE 325 MG TABLET.DR PO SCH (21:00)
[2025-02-01] MEDS: SENNOSIDES PO SCH (21:00)
[2025-02-01] MEDS: trAZOdone HCL 50 MG TAB PO SCH (21:00)
[2025-02-01] MEDS: DOCUSATE SODIUM PO SCH (21:00)
[2025-02-01] MEDS: GABAPENTIN 300 MG CAPSULE PO SCH (21:00)
[2025-02-01 21:20] VITALS: BP 143/70; PULSE 89; RESP 19; TEMP 97.9
[2025-02-01] MEDS: morPHINE 2 MG SYG IVP STA (22:39)
[2025-02-01 22:52] LABS: % IRON SATURATION 5.4 % (22-44)
[2025-02-01 23:19] LABS: THYROID STIMULATING HORMONE 2.57 uIU/mL (0.36-3.74)
[2025-02-02] VITALS (8 sets, daily range): BP systolic 105–150; BP diastolic 51–78; PULSE 67–85; RESP 17–20; TEMP 97.8–98.2; O2SAT 90–93
[2025-02-02] MEDS: FLUoxetine HCL 20 MG CAPSULE PO SCH (08:58)
[2025-02-02] MEDS: SUCRALFATE 1 GM TABLET PO SCH (08:58)
[2025-02-02] MEDS: PLECANATIDE PO SCH (08:59)
[2025-02-02] MEDS: atorVAStatin 40 MG TABLET PO SCH (08:59)
[2025-02-02] MEDS: MELOXICAM 7.5 MG TABLET PO SCH (08:59)
--- NOTE | 2025-02-02 09:00 | NUR ---
REFUSED ALL AM MEDS
[2025-02-02 11:40] LABS: BASOPHILS # (AUTO) 0.02 K/uL (0.00-0.20); BASOPHILS % (AUTO) 0.3 % (0.0-5.0); EOSINOPHILS # (AUTO) 0.47 K/uL (0.00-0.70); EOSINOPHILS % (AUTO) 6.9 % (0.0-8.0); HEMATOCRIT 33.7 % (36-48); IMMATURE GRANULOCYTE ABSOLUTE 0.03 K/uL (0-1); LYMPHOCYTES # (AUTO) 0.7 K/uL (1.0-4.8); LYMPHOCYTES % (AUTO) 9.6 % (21.0-51.0); MEAN CORPUSCULAR HEMOGLOBIN 19.9 pg (27.0-33.0); MEAN CORPUSCULAR HGB CONC 28.2 g/dL (32.0-36.0); MEAN CORPUSCULAR VOLUME 70.5 fL (79-99); MONOCYTES # (AUTO) 0.3 K/uL (0.1-1.0); MONOCYTES % (AUTO) 4.5 % (3.0-13.0); NEUTROPHILS # (AUTO) 5.4 K/uL (1.8-7.7); NEUTROPHILS % (AUTO) 78.3 % (40.0-77.0); PLATELET COUNT (AUTO) 400 K/uL (130-400); RED BLOOD CELL COUNT(AUTO) 4.78 MIL/uL (4.00-5.50); WHITE BLOOD COUNT (AUTO) 6.9 K/uL (4.8-10.8)
[2025-02-02 11:47] LABS: ALBUMIN 2.6 g/dL (3.5-5.0); BILIRUBIN,TOTAL 0.4 mg/dL (0.2-1.0); CREATININE 0.6 mg/dL (0.5-1.0); POTASSIUM 3.1 mmol/L (3.5-5.1); TOTAL PROTEIN, SERUM 6.5 g/dL (6.0-8.3)
--- NOTE | 2025-02-02 16:54 | EKG ---
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
[2025-02-02] MEDS: morPHINE 2 MG SYG IVP PRN (16:56)
--- NOTE | 2025-02-02 17:10 | PN ---
[facility] PROGRESS NOTE Date of Service: Feb 02, 2025 Time of Service: 17:09 SUBJECTIVE: Ms. Flowers is a 65-year-old female that was seen and examined today on 01/31/2025. Patient is a poor historian. The following was obtained from medical records available to me from a prior admission and emergency room physician report. According to emergency room physician: 65-year-old female brought in via EMS for weakness possible urinary tract infection. Patient has a permanent indwelling Dodd states they took cultures couple of days ago but did not have any results. Patient states she has a Dodd due to excoriated skin of the buttocks area from being bed ridden. As per EMS family stated she had an episode of disorientation but is now resolved. Patient has a time he is awake alert and oriented x4, denies having any fevers, nausea, vomiting, back pain. Today in the emergency department potassium 2.4, magnesium 1.6, urinalysis positive for leukocyte esterase and WBCs too many to count. Emergency room physician recommended that patient be admitted with a diagnosis of hypokalemia and UTI. 02/01/25 84-year-old female was admitted via EMS for evaluation of generalized weakness and suspected UTI. The patient is bed bound for the past year, and has an indwelling Dodd catheter due to excoriated buttocks from prolonged immobility. She reports vague joint pain weakness arms knees hips and stiffness in hands, with frequent requests for morphine. No clear focal tenderness noted. Via EMS reported a transient episode of disorientation which has since resolved. The patient is currently awake, alert but but not clearly comprehending her condition and her symptoms. And denies fever, chills, nausea, vomiting or bowel incontinence. She has a history of AFib, anemia and chronic constipation and prior hospitalization for fecal impaction. CT abdomen on 04/06/2024 revealed hiatal hernia, fluid-filled distal esophagus and an L3 vertebral fracture she denies chest pain or shortness of breath or palpitations. She complains of dark urine. Appetite and fluid intake unclear due to altered functional status. 02/02/25 patient seen and examined. She has a poor insight into her condition but seems to be more alert and clinically stable at this point. Continue to monitor for relapse REVIEW OF SYSTEMS CONSTITUTIONAL: Denies fevers, chills, or night sweats. No unintentional weight loss reported. NEUROLOGICAL: Denies headache, amaurosis fugax, motor weakness, sensory deficit, vertigo/spinning sensation, gait abnormalities, or tremors. ENT: No hearing loss, otalgia, otorrhea, rhinitis, rhinorrhea, hoarseness, or sore throat. CARDIOVASCULAR: Denies any exertional angina, dyspnea on exertion, orthopnea, paroxysmal nocturnal dyspnea, palpitations, life-threatening arrhythmias, claudication. PULMONARY: Denies any shortness of breath, cough, phlegm/sputum, hemoptysis, pleuritic chest pain. SLEEP: Denies morning headaches, daytime somnolence or napping. Denies difficulty falling asleep, staying asleep, waking from sleep. Denies knowledge of snoring. GASTROINTESTINAL: Denies any type of dysphagia to either liquids or solids. Denies nausea, vomiting, pyrosis, early satiety, abdominal pain, diarrhea, constipation, or changes in stool consistency or caliber. Denies coffee-ground emesis, hematemesis, hematochezia, or melanotic stools. GENITOURINARY: Denies frequency, urgency, nocturia, hematuria or incontinence (Storage/Irritative symptoms.) Low urinary stream, straining to void, urinary intermittency or hesitancy, splitting of the voiding stream, terminal dribbling. ENDOCRINOLOGIC: Denies polyuria, polydipsia, polyphagia or heat/cold intolerances. HEMATOLOGIC: Denies thrombophilia/previous clots, or coagulopathy/bleeding disorders. ONCOLOGIC: Denies personal history of malignancy. DERMATOLOGIC: Denies rashes or pruritus. PSYCHIATRIC: Denies any suicidal or homicidal ideation. Denies hallucinations. PHYSICAL EXAM GENERAL APPEARANCE: The patient is awake, alert, and oriented, in no acute cardiopulmonary distress. NEUROLOGICAL: Cranial nerves II-XII grossly intact. Motor is 5/5 in bilateral upper and lower extremities proximal to distal. No sensory deficits. HEENT: Face is symmetric. Pupils are equal and reactive. Extraocular movements are intact. NECK: Supple. No JVD. No thyromegaly. No submental, submandibular, pre- /postauricular, occipital or supraclavicular lymphadenopathy. CHEST: Normal chest expansion. No Telemetry. LUNGS: Absence of any rales, rhonchi or any wheezing. CARDIOVASCULAR: Regular. S1 and S2 normal. No appreciable rubs, murmurs or gallops. ABDOMEN: Soft, nontender, and nondistended. There is no rebound, voluntary guarding, or rigidity. : Deferred. No Dodd. EXTREMITIES: Non-edematous and not cyanotic. No clubbing. Good capillary refill. SKIN: No skin breakdown. LABS: Laboratory: Test 02/02/25 16:10 02/02/25 11:22 02/01/25 22:10 02/01/25 09:43 Range/Units Whole Blood Glucose 122 H 70-110 MG/DL White Blood Count 6.9 4.8-10.8 K/uL Red Blood Count 4.78 4.00-5.50 MIL/uL Hemoglobin 9.5 L 12.0-16.0 g/dL Hematocrit 33.7 L 36-48 % Mean Corpuscular Volume 70.5 L 79-99 fL Mean Corpuscular Hemoglobin 19.9 L 27.0-33.0 pg Mean Corpuscular Hemoglobin Concent 28.2 L 32.0-36.0 g/dL Red Cell Distribution Width 20.0 H 11.0-15.5 % Platelet Count 400 130-400 K/uL Mean Platelet Volume 8.6 7.5-10.5 fL Immature Granulocyte % (Auto) 0.4 0-1 % Neutrophils (%) (Auto) 78.3 H 40.0-77.0 % Lymphocytes (%) (Auto) 9.6 L 21.0-51.0 % Monocytes (%) (Auto) 4.5 3.0-13.0 % Eosinophils (%) (Auto) 6.9 0.0-8.0 % Basophils (%) (Auto) 0.3 0.0-5.0 % Neutrophils # (Auto) 5.4 1.8-7.7 K/uL Lymphocytes # (Auto) 0.7 L 1.0-4.8 K/uL Monocytes # (Auto) 0.3 0.1-1.0 K/uL Eosinophils # (Auto) 0.47 0.00-0.70 K/uL Basophils # (Auto) 0.02 0.00-0.20 K/uL Absolute Immature Granulocyte (auto 0.03 0-1 K/uL Nucleated Red Blood Cells 0.0 0.0-0.19 % White Cell Morphology Comment See comments Sodium Level 142 136-145 mmol/L Potassium Level 3.1 L 3.5-5.1 mmol/L Chloride Level 103 101-111 mmol/L Carbon Dioxide Level 32 21-32 mmol/L Blood Urea Nitrogen 3 L 7-18 mg/dL Creatinine 0.6 0.5-1.0 mg/dL Glomerular Filtration Rate Calc 100 >90 mL/min Random Glucose 133 H 70-105 mg/dL Total Calcium 8.7 8.5-10.1 mg/dL Total Bilirubin 0.4 0.2-1.0 mg/dL Aspartate Amino Transf (AST/SGOT) 55 H 10-37 U/L Alanine Aminotransferase (ALT/SGPT) 10 L 12-78 U/L Alkaline Phosphatase 173 H 50-136 U/L Total Protein 6.5 6.0-8.3 g/dL Albumin 2.6 L 3.5-5.0 g/dL Erythrocyte Sedimentation Rate 51 H 0-30 MM/HR Iron Level 21 L 50-170 mcg/dL Total Iron Binding Capacity 384 250-450 mcg/dL Percent Iron Saturation 5.4 L 22-44 % B-Type Natriuretic Peptide 85 0-100 pg/mL Vitamin B12 Level 622 193-986 pg/mL Thyroid Stimulating Hormone (TSH) 2.57 # 0.36-3.74 uIU/mL Phosphorus Level 3.7 2.5-4.9 mg/dL Magnesium Level 2.10 1.80-2.40 mg/dL Test 01/31/25 18:31 01/31/25 18:23 Range/Units Red Blood Cell Morphology See comments Urine Color YELLOW YELLOW Urine Appearance CLOUDY H CLEAR Urine pH 6.5 5.0-8.0 Urine Specific Kemp 1.007 1.001-1.031 Urine Protein 20 H NEGATIVE mg/dL Urine Glucose (UA) NEGATIVE NEGATIVE mg/dL Urine Ketones NEGATIVE NEGATIVE mg/dL Urine Occult Blood MODERATE H NEGATIVE Urine Nitrate 1+ H NEGATIVE Urine Bilirubin NEGATIVE NEGATIVE mg/dL Urine Urobilinogen 0.2 0.2-1.0 mg/dL Urine Leukocyte Esterase 500 H NEGATIVE Serjio/uL Urine RBC 6-10 H 0-1 /HPF Urine WBC TNTC H 0-1 /HPF Urine WBC Clumps (Auto) MOD 0-1 /HPF Urine Squamous Epithelial Cells FEW 0-2 /HPF Urine Bacteria MANY None Seen /HPF Urine Other Casts 12 None Seen /LPF Current Medications Medications (Trade) Dose Ordered Sig/Brunilda Route PRN Reason Start Time Stop Time Status Last Admin Dose Admin Acetaminophen (TYLenol 325MG TAB) 650 mg ONCE PO 01/31/25 18:30 01/31/25 21:30 DC Acetaminophen (TYLenol 325MG TAB) 650 mg Q6H PRN PO TEMPERATURE GREATER THAN 101.5 01/31/25 20:30 03/02/25 20:29 Acetaminophen (acetaMINOPHEN) 500 mg Q6H6 IVPB 02/01/25 18:00 02/01/25 12:45 DC Acetaminophen (acetaMINOPHEN) 650 mg Q6H PRN IVPB MILD PAIN (1-3) 02/01/25 19:30 03/03/25 19:29 Acetaminophen (acetaMINOPHEN) 1,000 mg Q6H IVPB 02/01/25 13:30 02/01/25 16:53 DC 02/01/25 14:02 1,000 MG Atorvastatin Calcium (LIPItor 40MG) 40 mg DAILY PO 02/02/25 09:00 03/04/25 08:59 Ceftriaxone Sodium (ROCEphine 1G INJ) 1 gm ONCE IVPB 01/31/25 19:22 01/31/25 23:59 DC 01/31/25 19:33 1 GM Ceftriaxone Sodium (ROCEphine 1G INJ) 1 gm Q24H IV 01/31/25 20:30 02/10/25 20:29 02/01/25 21:47 1 GM Cyclobenzaprine HCl (Cyclobenzaprine HCl) 5 mg HS PRN PO MUSCLE SPASMS 02/01/25 17:30 03/03/25 17:29 Enoxaparin Sodium (Lovenox) 40 mg DAILY SQ 02/01/25 09:00 03/03/25 08:59 02/01/25 08:20 40 MG Famotidine (Pepcid 20mg Tab) 20 mg DAILY PO 02/01/25 09:00 03/03/25 08:59 02/01/25 08:19 20 MG Ferrous Sulfate (Ferrous Sulfate) 325 mg TID PO 02/01/25 21:00 03/03/25 20:59 Fluoxetine HCl (FLUoxetine HCL 20 MG CAPSULE) 20 mg DAILY PO 02/02/25 09:00 03/04/25 08:59 Gabapentin (NEURontin 300 MG CAP) 900 mg TID PO 02/01/25 21:00 03/03/25 20:59 Home Med (Home Medication) (Plecanatide (Trulance) 1 TAB) DAILY PO 02/02/25 09:00 03/04/25 08:59 Home Med (Home Medication) (Sennosides/ Docusate Sodium (Senexon-S 50-... HS PO 02/01/25 21:00 03/03/25 20:59 Hydralazine HCl (APRESOLine 20MG INJ) 10 mg Q6H PRN IV For:SBP above 160;DBP above 90 01/31/25 20:30 03/02/25 20:29 Hydroxyzine HCl (ATArax 25MG TAB) 25 mg BID PRN PO ITCHING 02/01/25 17:00 03/03/25 16:59 Magnesium Sulfate 50 ml @ 0 mls/hr PROTOCOL PRN IV h 01/31/25 20:30 03/02/25 20:29 01/31/25 21:22 25 MLS/HR Meloxicam (Mobic 7.5mg) 15 mg DAILY PO 02/02/25 09:00 03/04/25 08:59 Morphine Sulfate (morPHINE 2MG SYG) 1 mg Q6H6 PRN IVP FOR SEVERE PAIN (7 to 10) 02/02/25 16:30 02/09/25 16:29 02/02/25 16:56 1 MG Morphine Sulfate (morPHINE 2MG SYG) 2 mg ONCE IVP 01/31/25 18:59 01/31/25 23:59 DC 01/31/25 22:09 2 MG Morphine Sulfate (morPHINE 2MG SYG) 2 mg ONCE STAT IVP 02/01/25 22:19 02/01/25 22:21 DC 02/01/25 22:39 2 MG Morphine Sulfate (morPHINE 4MG SYG) 2 mg Q4H PRN IVP SEVERE PAIN (7-10) 01/31/25 20:30 02/01/25 12:34 DC 02/01/25 08:20 2 MG Ondansetron HCl (zoFRAN 4MG INJ) 4 mg ONCE IVP 01/31/25 18:59 01/31/25 23:59 DC 01/31/25 19:34 4 MG Ondansetron HCl (zoFRAN 4MG INJ) 4 mg Q6H PRN IV NAUSEA/VOMITING 01/31/25 20:30 03/02/25 20:29 02/01/25 02:57 4 MG Potassium Chloride 100 ml @ 100 mls/hr AD PRN IV POTASSIUM PROTOCOL 01/31/25 20:30 03/02/25 20:29 02/01/25 00:18 100 MLS/HR Potassium Chloride 100 ml @ 100 mls/hr ONCE IV 01/31/25 19:30 01/31/25 23:59 DC 01/31/25 19:34 100 MLS/HR Potassium Chloride (K-Dur/Klor-Con 20meq) 20 meq AD PRN PO POTASSIUM PROTOCOL 01/31/25 20:30 03/02/25 20:29 Potassium Chloride (KCl 10% Elixir 20meq/15ml) 20 meq AD PRN PO POTASSIUM PROTOCOL 01/31/25 20:30 03/02/25 20:29 02/01/25 08:19 20 MEQ Sucralfate (Carafate) 1 gm DAILY PO 02/02/25 09:00 03/04/25 08:59 Trazodone HCl (DesyREL/OlepTRO) 50 mg HS PO 02/01/25 21:00 03/03/25 20:59 Zolpidem Tartrate (AmbIEN) 10 mg HS PRN PO INSOMNIA 02/01/25 17:30 03/03/25 17:29 DIAGNOSTICS / RADIOLOGY: [ ] ASSESSMENT: Complicated UTI with indwelling Dodd catheter Metabolic encephalopathy Hypokalemia Hypomagnesemia Atrial fibrillation chronic, rate controlled currently, on Lovenox Anemia, likely iron deficiency Generalized weakness Bed-bound status with pressure injury risk History of constipation/fecal impaction Pain likely functional or neuropathic Disorientation Functional quadriplegia PLAN: [ ] Admit patient to medical floor as inpatient status. Place patient on telemetry monitoring. Fall precautions. Replace potassium per hospital protocol. Replace magnesium per protocol. Check urine culture, follow up with the results. Empiric antibiotic therapy with Rocephin. Consider resuming home medications once they have been reconciled. GI prophylaxis, famotidine DVT prophylaxis, Lovenox Infectious disease Continue ceftriaxone1 g IV Q 24 H. Await culture sensitivities. Dodd catheter exchange or removal if feasible. WBC and vital monitoring. Consider ID consult if culture is resistance are patient deteriorates. Renal/electrolytes. IV KCl 40 mEq in NS over4 hours into 2, recheck q.4h. Placed on a the facility electrolytes replenishment and monitoring protocol IV MgSO42 g over2 hours, recheck magnesium q.8h. Strict Is&Os, monitor BUN creatinine trends. Cardiology Continue Lovenox 40 mg subQ q.d. or adjusted therapeutic if not prophylactic. Continue rate control if needed p.r.n. with metoprolol. No need for stat Cardiology unless unstable. Echocardiogram . Hepatology Ordered iron studies, TIBC, ferritin. Consider oral [id number] mg daily pending results. Monitor H&H daily. GI/bowel movement Continue famotidine 20 mg p.o. q.d.. Add docusate/senna p.r.n. to prevent impaction. Monitor for BM every48 H. Neurology/psych Frequent mentation daily No current need for neurology consult. If continued request for morphine, consider psych evaluation. Pain management Hold opioids unless objective pain source. Continue IV Tylenol 650 mg q.6h p.r.n.. Reassess daily. Dermatology/skin care Wound care consult for sacral excoriation. Barrier creams, offloading, turning schedule. Pressure injury prevention bundle. Mobility/nutrition PT/OT referral Assess nutritional intake. Consider dietitian evaluation. COURTNEY DENNIS MD Feb 02, 2025 17:10
[2025-02-03] VITALS (8 sets, daily range): BP systolic 104–142; BP diastolic 44–77; PULSE 80–96; RESP 17–20; TEMP 98–98.7; O2SAT 90
[2025-02-03 06:40] LABS: BASOPHILS # (AUTO) 0.02 K/uL (0.00-0.20); BASOPHILS % (AUTO) 0.3 % (0.0-5.0); EOSINOPHILS # (AUTO) 0.52 K/uL (0.00-0.70); EOSINOPHILS % (AUTO) 8.5 % (0.0-8.0); IMMATURE GRANULOCYTE ABSOLUTE 0.05 K/uL (0-1); LYMPHOCYTES # (AUTO) 0.8 K/uL (1.0-4.8); LYMPHOCYTES % (AUTO) 13.2 % (21.0-51.0); MEAN CORPUSCULAR HEMOGLOBIN 20.1 pg (27.0-33.0); MEAN CORPUSCULAR HGB CONC 27.6 g/dL (32.0-36.0); MEAN CORPUSCULAR VOLUME 72.6 fL (79-99); MONOCYTES # (AUTO) 0.3 K/uL (0.1-1.0); MONOCYTES % (AUTO) 5.4 % (3.0-13.0); NEUTROPHILS # (AUTO) 4.4 K/uL (1.8-7.7); NEUTROPHILS % (AUTO) 71.8 % (40.0-77.0); PLATELET COUNT (AUTO) 375 K/uL (130-400); RED BLOOD CELL COUNT(AUTO) 4.68 MIL/uL (4.00-5.50); RED CELL DISTRIBUTION WIDTH 20.3 % (11.0-15.5); WHITE BLOOD COUNT (AUTO) 6.2 K/uL (4.8-10.8)
[2025-02-03 06:55] LABS: ALBUMIN 2.6 g/dL (3.5-5.0); BILIRUBIN,TOTAL 0.3 mg/dL (0.2-1.0); CREATININE 0.8 mg/dL (0.5-1.0); TOTAL PROTEIN, SERUM 6.3 g/dL (6.0-8.3)
[2025-02-03 06:56] LABS: POTASSIUM 2.8 mmol/L (3.5-5.1)
--- NOTE | 2025-02-03 13:00 | NUR ---
Order noted for "Physical Therapy to begin ambulation". Upon speaking to patient, she has been bedridden x 1 year due to cervical surgery about a year ago. Provider present reports patient only gets out of bed with the use of a Moses lift. She has a hospital bed as well. Plan is for DC home, will continue to work with patient as able while at hospital. Addendum: 02/03/25 at 1328 by SANGEETHA MCGOWAN PT Amended: Links added.
--- NOTE | 2025-02-03 14:15 | NUR ---
[facility] Consult: Patient assessed by wound healing team. See wound assessment. Assessment and recommendations provided to primary nurse. Education provided. Addendum: 02/03/25 at 1543 by MALINDA TORRES RN RN/ Amended: Links added.
--- NOTE | 2025-02-03 15:20 | NUR ---
PT UPSET AND CRYING RE: CONTACT ISOLATION STATUS. STATES SHE FEELS DISCRIMINATED PEOPLE OPEN HER DOOR TO LOOK INSIDE AND QUICKLY EXIT. DID TEACHING RE: ISOLATION STATUS PRECAUTIONS FOR ESBL AND THAT IT IS HER PREFERENCE TO KEEP THE DOOR CLOSED. DID OFFER TO LEAVE DOOR OPEN STAFF COULD SEE INTO HER ROOM BUT SHE DECLINED. INSTRUCTED STAFF WILL BE OPENING TE DOOR OCCAISONALLY TO CHECK ON HER. YAQUELIN HUDSON CHARGE NURSE INFORMED OF PATIENT'S COMPLAINTS
--- NOTE | 2025-02-03 15:37 | NUR ---
DCP -- Home Contact Precautions Patient states originally from [place] became ill and is now living with Daniela Ch, Daughter [phone] in a house with a ramp entrance. States she is disabled and bed bound, remains independent and does not drive. Transportation via ambulance: [facility] has her authorization number. States she is full assist ADL's; bed bound. has a bedside commode but is unable to use it. has [facility] twice a week for Dodd catheter and wound care on her "bottom." [facility] has [place] visiting Nurse Service provider for 34 hours per week. PCP - Kostas Le MD Pharmacy - [facility]. Upon discharge, contact Daniela Ch, Daughter [phone] to make arrangements and make preparations; transportation will be via ambulance: [facility]; has her authorization number. 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
--- NOTE | 2025-02-03 15:40 | PN ---
[facility] PROGRESS NOTE Date of Service: Feb 03, 2025 Time of Service: 15:34 SUBJECTIVE: Ms. Flowers is a 65-year-old female that was seen and examined today on 01/31/2025. Patient is a poor historian. The following was obtained from medical records available to me from a prior admission and emergency room physician report. According to emergency room physician: 65-year-old female brought in via EMS for weakness possible urinary tract infection. Patient has a permanent indwelling Dodd states they took cultures couple of days ago but did not have any results. Patient states she has a Dodd due to excoriated skin of the buttocks area from being bed ridden. As per EMS family stated she had an episode of disorientation but is now resolved. Patient has a time he is awake alert and oriented x4, denies having any fevers, nausea, vomiting, back pain. Today in the emergency department potassium 2.4, magnesium 1.6, urinalysis positive for leukocyte esterase and WBCs too many to count. Emergency room physician recommended that patient be admitted with a diagnosis of hypokalemia and UTI. 02/01/25 84-year-old female was admitted via EMS for evaluation of generalized weakness and suspected UTI. The patient is bed bound for the past year, and has an indwelling Dodd catheter due to excoriated buttocks from prolonged immobility. She reports vague joint pain weakness arms knees hips and stiffness in hands, with frequent requests for morphine. No clear focal tenderness noted. Via EMS reported a transient episode of disorientation which has since resolved. The patient is currently awake, alert but but not clearly comprehending her condition and her symptoms. And denies fever, chills, nausea, vomiting or bowel incontinence. She has a history of AFib, anemia and chronic constipation and prior hospitalization for fecal impaction. CT abdomen on 04/06/2024 revealed hiatal hernia, fluid-filled distal esophagus and an L3 vertebral fracture she denies chest pain or shortness of breath or palpitations. She complains of dark urine. Appetite and fluid intake unclear due to altered functional status. 02/02/25 patient seen and examined. She has a poor insight into her condition but seems to be more alert and clinically stable at this point. Continue to monitor for relapse 02/03/25 He was evaluated at bedside today and is clinically improving. She reports increased energy, increased oral intake, and compliance with all medications. Denies fever chills, chest pain, dyspnea or abdominal pain. No vomiting or nausea. She has continued participation in PT/OT . No new urinary symptoms. Awaiting definitive antibiotic deescalation plan from ID, who is actively managing the ESBL infection. REVIEW OF SYSTEMS CONSTITUTIONAL: Denies fevers, chills, or night sweats. No unintentional weight loss reported. NEUROLOGICAL: Denies headache, amaurosis fugax, motor weakness, sensory deficit, vertigo/spinning sensation, gait abnormalities, or tremors. ENT: No hearing loss, otalgia, otorrhea, rhinitis, rhinorrhea, hoarseness, or sore throat. CARDIOVASCULAR: Denies any exertional angina, dyspnea on exertion, orthopnea, paroxysmal nocturnal dyspnea, palpitations, life-threatening arrhythmias, claudication. PULMONARY: Denies any shortness of breath, cough, phlegm/sputum, hemoptysis, pleuritic chest pain. SLEEP: Denies morning headaches, daytime somnolence or napping. Denies diff iculty falling asleep, staying asleep, waking from sleep. Denies knowledge of snoring. GASTROINTESTINAL: Denies any type of dysphagia to either liquids or solids. Denies nausea, vomiting, pyrosis, early satiety, abdominal pain, diarrhea, constipation, or changes in stool consistency or caliber. Denies coffee-ground emesis, hematemesis, hematochezia, or melanotic stools. GENITOURINARY: Denies frequency, urgency, nocturia, hematuria or incontinence (Storage/Irritative symptoms.) Low urinary stream, straining to void, urinary intermittency or hesitancy, splitting of the voiding stream, terminal dribbling. ENDOCRINOLOGIC: Denies polyuria, polydipsia, polyphagia or heat/cold in tolerances. HEMATOLOGIC: Denies thrombophilia/previous clots, or coagulopathy/bleeding disorders. ONCOLOGIC: Denies personal history of malignancy. DERMATOLOGIC: Denies rashes or pruritus. PSYCHIATRIC: Denies any suicidal or homicidal ideation. Denies hallucinations. PHYSICAL EXAM GENERAL APPEARANCE: The patient is awake, alert, and oriented, in no acute cardiopulmonary distress. NEUROLOGICAL: Cranial nerves II-XII grossly intact. Motor is 5/5 in bilateral upper and lower extremities proximal to distal. No sensory deficits. HEENT: Face is symmetric. Pupils are equal and reactive. Extraocular movements are intact. NECK: Supple. No JVD. No thyromegaly. No submental, submandibular, pre- /postauricular, occipital or supraclavicular lymphadenopathy. CHEST: Normal chest expansion. No Telemetry. LUNGS: Absence of any rales, rhonchi or any wheezing. CARDIOVASCULAR: Regular. S1 and S2 normal. No appreciable rubs, murmurs or gallops. ABDOMEN: Soft, nontender, and nondistended. There is no rebound, voluntary guarding, or rigidity. : Deferred. No Dodd. EXTREMITIES: Non-edematous and not cyanotic. No clubbing. Good capillary refill. SKIN: No skin breakdown. Vital Signs (last 8hr) Date Time Temp Pulse Resp B/P (MAP) Pulse Ox O2 Delivery O2 Flow Rate FiO2 02/03/25 11:30 98.4 82 18 106/44 95 Room Air 02/03/25 07:56 98.4 80 18 115/65 92 Room Air LABS: Laboratory: Test 02/03/25 10:55 02/03/25 06:36 02/02/25 11:22 02/01/25 22:10 Range/Units Whole Blood Glucose 180 #H 70-110 MG/DL White Blood Count 6.2 4.8-10.8 K/uL Red Blood Count 4.68 4.00-5.50 MIL/uL Hemoglobin 9.4 L 12.0-16.0 g/dL Hematocrit 34.0 L 36-48 % Mean Corpuscular Volume 72.6 L 79-99 fL Mean Corpuscular Hemoglobin 20.1 L 27.0-33.0 pg Mean Corpuscular Hemoglobin Concent 27.6 L 32.0-36.0 g/dL Red Cell Distribution Width 20.3 H 11.0-15.5 % Platelet Count 375 130-400 K/uL Mean Platelet Volume 8.4 7.5-10.5 fL Immature Granulocyte % (Auto) 0.8 0-1 % Neutrophils (%) (Auto) 71.8 40.0-77.0 % Lymphocytes (%) (Auto) 13.2 L 21.0-51.0 % Monocytes (%) (Auto) 5.4 3.0-13.0 % Eosinophils (%) (Auto) 8.5 H 0.0-8.0 % Basophils (%) (Auto) 0.3 0.0-5.0 % Neutrophils # (Auto) 4.4 1.8-7.7 K/uL Lymphocytes # (Auto) 0.8 L 1.0-4.8 K/uL Monocytes # (Auto) 0.3 0.1-1.0 K/uL Eosinophils # (Auto) 0.52 0.00-0.70 K/uL Basophils # (Auto) 0.02 0.00-0.20 K/uL Absolute Immature Granulocyte (auto 0.05 0-1 K/uL Nucleated Red Blood Cells 0.0 0.0-0.19 % Sodium Level 139 136-145 mmol/L Potassium Level 2.8 *L 3.5-5.1 mmol/L Chloride Level 103 101-111 mmol/L Carbon Dioxide Level 30 21-32 mmol/L Blood Urea Nitrogen 2 L 7-18 mg/dL Creatinine 0.8 0.5-1.0 mg/dL Glomerular Filtration Rate Calc 82 >90 mL/min Random Glucose 188 H 70-105 mg/dL Total Calcium 8.5 8.5-10.1 mg/dL Total Bilirubin 0.3 # 0.2-1.0 mg/dL Aspartate Amino Transf (AST/SGOT) 18 10-37 U/L Alanine Aminotransferase (ALT/SGPT) 10 L 12-78 U/L Alkaline Phosphatase 166 H 50-136 U/L Total Protein 6.3 6.0-8.3 g/dL Albumin 2.6 L 3.5-5.0 g/dL White Cell Morphology Comment See comments Erythrocyte Sedimentation Rate 51 H 0-30 MM/HR Iron Level 21 L 50-170 mcg/dL Total Iron Binding Capacity 384 250-450 mcg/dL Percent Iron Saturation 5.4 L 22-44 % B-Type Natriuretic Peptide 85 0-100 pg/mL Vitamin B12 Level 622 193-986 pg/mL Thyroid Stimulating Hormone (TSH) 2.57 # 0.36-3.74 uIU/mL Current Medications Medications (Trade) Dose Ordered Sig/Brunilda Route PRN Reason Start Time Stop Time Status Last Admin Dose Admin Acetaminophen (TYLenol 325MG TAB) 650 mg ONCE PO 01/31/25 18:30 01/31/25 21:30 DC Acetaminophen (TYLenol 325MG TAB) 650 mg Q6H PRN PO TEMPERATURE GREATER THAN 101.5 01/31/25 20:30 03/02/25 20:29 Acetaminophen (acetaMINOPHEN) 500 mg Q6H6 IVPB 02/01/25 18:00 02/01/25 12:45 DC Acetaminophen (acetaMINOPHEN) 650 mg Q6H PRN IVPB MILD PAIN (1-3) 02/01/25 19:30 03/03/25 19:29 Acetaminophen (acetaMINOPHEN) 1,000 mg Q6H IVPB 02/01/25 13:30 02/01/25 16:53 DC 02/01/25 14:02 1,000 MG Atorvastatin Calcium (LIPItor 40MG) 40 mg DAILY PO 02/02/25 09:00 03/04/25 08:59 Ceftriaxone Sodium (ROCEphine 1G INJ) 1 gm ONCE IVPB 01/31/25 19:22 01/31/25 23:59 DC 01/31/25 19:33 1 GM Ceftriaxone Sodium (ROCEphine 1G INJ) 1 gm Q24H IV 01/31/25 20:30 02/10/25 20:29 02/02/25 19:51 1 GM Cyclobenzaprine HCl (Cyclobenzaprine HCl) 5 mg HS PRN PO MUSCLE SPASMS 02/01/25 17:30 03/03/25 17:29 Enoxaparin Sodium (Lovenox) 40 mg DAILY SQ 02/01/25 09:00 03/03/25 08:59 02/03/25 08:37 40 MG Famotidine (Pepcid 20mg Tab) 20 mg DAILY PO 02/01/25 09:00 03/03/25 08:59 02/03/25 08:34 20 MG Ferrous Sulfate (Ferrous Sulfate) 325 mg TID PO 02/01/25 21:00 03/03/25 20:59 Fluoxetine HCl (FLUoxetine HCL 20 MG CAPSULE) 20 mg DAILY PO 02/02/25 09:00 03/04/25 08:59 02/03/25 08:34 20 MG Gabapentin (NEURontin 300 MG CAP) 900 mg TID PO 02/01/25 21:00 03/03/25 20:59 02/03/25 13:45 900 MG Home Med (Home Medication) (Plecanatide (Trulance) 1 TAB) DAILY PO 02/02/25 09:00 03/04/25 08:59 Home Med (Home Medication) (Sennosides/ Docusate Sodium (Senexon-S 50-... HS PO 02/01/25 21:00 03/03/25 20:59 Hydralazine HCl (APRESOLine 20MG INJ) 10 mg Q6H PRN IV For:SBP above 160;DBP above 90 01/31/25 20:30 03/02/25 20:29 Hydroxyzine HCl (ATArax 25MG TAB) 25 mg BID PRN PO ITCHING 02/01/25 17:00 03/03/25 16:59 Magnesium Sulfate 50 ml @ 0 mls/hr PROTOCOL PRN IV h 01/31/25 20:30 03/02/25 20:29 01/31/25 21:22 25 MLS/HR Meloxicam (Mobic 7.5mg) 15 mg DAILY PO 02/02/25 09:00 03/04/25 08:59 02/03/25 08:36 15 MG Morphine Sulfate (morPHINE 2MG SYG) 1 mg Q6H6 PRN IVP FOR SEVERE PAIN (7 to 10) 02/02/25 16:30 02/09/25 16:29 02/03/25 12:02 1 MG Morphine Sulfate (morPHINE 2MG SYG) 2 mg ONCE IVP 01/31/25 18:59 01/31/25 23:59 DC 01/31/25 22:09 2 MG Morphine Sulfate (morPHINE 2MG SYG) 2 mg ONCE STAT IVP 02/01/25 22:19 02/01/25 22:21 DC 02/01/25 22:39 2 MG Morphine Sulfate (morPHINE 4MG SYG) 2 mg Q4H PRN IVP SEVERE PAIN (7-10) 01/31/25 20:30 02/01/25 12:34 DC 02/01/25 08:20 2 MG Ondansetron HCl (zoFRAN 4MG INJ) 4 mg ONCE IVP 01/31/25 18:59 01/31/25 23:59 DC 01/31/25 19:34 4 MG Ondansetron HCl (zoFRAN 4MG INJ) 4 mg Q6H PRN IV NAUSEA/VOMITING 01/31/25 20:30 03/02/25 20:29 02/01/25 02:57 4 MG Potassium Chloride 100 ml @ 100 mls/hr AD PRN IV POTASSIUM PROTOCOL 01/31/25 20:30 03/02/25 20:29 02/03/25 08:38 100 MLS/HR Potassium Chloride 100 ml @ 100 mls/hr ONCE IV 01/31/25 19:30 01/31/25 23:59 DC 01/31/25 19:34 100 MLS/HR Potassium Chloride (K-Dur/Klor-Con 20meq) 20 meq AD PRN PO POTASSIUM PROTOCOL 01/31/25 20:30 03/02/25 20:29 Potassium Chloride (KCl 10% Elixir 20meq/15ml) 20 meq AD PRN PO POTASSIUM PROTOCOL 01/31/25 20:30 03/02/25 20:29 02/03/25 13:46 20 MEQ Sucralfate (Carafate) 1 gm DAILY PO 02/02/25 09:00 03/04/25 08:59 02/03/25 08:34 1 GM Trazodone HCl (DesyREL/OlepTRO) 50 mg HS PO 02/01/25 21:00 03/03/25 20:59 02/02/25 19:51 50 MG Zolpidem Tartrate (AmbIEN) 10 mg HS PRN PO INSOMNIA 02/01/25 17:30 03/03/25 17:29 DIAGNOSTICS / RADIOLOGY: [ ] PATIENT: SANGEETHA HARRIS MR#: [id number] : 09/18/1952 SEX: F AGE: 72 LOCATION: [facility] ORDER 1522 STATUS: ADM IN REPORT#: [id number] SERVICE 1519 REASON: hx of colon and bladder cancer, uti, recent cystoscopy, hx of neprhectomy ORDERING PHYSICIAN: DELMA STANLEY MD PROCEDURE: ABD PEL WO - CT ABDOMEN/PELVIS W/O CONTRAST CT ABDOMEN/PELVIS W/O CONTRAST HISTORY: History of colon and bladder cancer COMPARISON: None TECHNIQUE: Multiple sequential axial images of the abdomen and pelvis were obtained from the dome of the diaphragm through symphysis pubis. Patient was not given contrast through intravenous route. Oral contrast was not given. Reconstruction images were not obtained. This is limiting evaluation. FINDINGS: No pleural effusion is seen bilaterally. There is no evidence of parenchymal disease or pulmonary nodule of the visualized lower lungs. Degenerative changes of the thoracolumbar spine are present. The heart is not enlarged. Postcholecystectomy changes are seen. A small hiatal hernia is seen. The study is limited due to lack of oral and IV contrast. The liver, spleen, adrenal glands and pancreas are unremarkable. 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 There may be minimal left hydronephrosis. No evidence of renal stone is seen. Fecal material is seen in the colon. There are normal size retroperitoneal and mesenteric lymph nodes. No ascites is seen. Atherosclerotic changes are present. Pelvic sidewalls are symmetric bilaterally. Deformity is seen of the right pubic ramus may be related to old trauma. Bladder is well distended without wall thickening. IMPRESSION: 1. The study is limited due to lack of oral and IV contrast. The study is limited due to the lack of two-dimensional reconstruction images. Small hiatal hernia is seen. No ascites is seen. Right kidney has been advanced and the minimal left hydronephrosis. CT was performed with one or more following dose reduction techniques: automated exposure control, adjustment of the mA and kv according to patient's size, or use of a iterative reconstruction technique. DICTATED BY: CRISTOBAL PATEL MD DATE: 01/29/25 1612 ELECTRONICALLY SIGNED BY: CRISTOBAL PATEL MD DATE: 01/29/25 1618 ASSESSMENT: Complicated UTI with indwelling Dodd catheter Metabolic encephalopathy Hypokalemia Hypomagnesemia Atrial fibrillation chronic, rate controlled currently, on Lovenox Anemia, likely iron deficiency Generalized weakness Bed-bound status with pressure injury risk History of constipation/fecal impaction Pain likely functional or neuropathic Disorientation Functional quadriplegia PLAN: WBC count improved to 6.0, hemoglobin stable at 9.4, hematocrit at 34.0 low, iron panel is reveals iron low at 21, AICD plus iron deficiency, creatinine normalized at 0.8 BUN is too low, ESR elevated at 51, TSH and B12 are normal BNP is at 85 normal. Microbiology revealed urine culture more than [id number] colony-forming units ESBL positive Klebsiella pneumoniae sensitive to Zosyn levofloxacin and gentamicin. Blood culture no growth in 2 3 days. Admit patient to medical floor as inpatient status. Place patient on telemetry monitoring. Fall precautions. Replace potassium per hospital protocol. Replace magnesium per protocol. Check urine culture, follow up with the results. Empiric antibiotic therapy with Rocephin. Consider resuming home medications once they have been reconciled. GI prophylaxis, famotidine DVT prophylaxis, Lovenox Infectious disease Continue ceftriaxone1 g IV Q 24 H. Awaiting definitive antibiotic adjustments by ID. Dodd catheter exchange or removal if feasible. WBC and vital monitoring. Consider ID consult if culture is resistance are patient deteriorates. Renal/electrolytes. IV KCl 40 mEq in NS over4 hours into 2, recheck q.4h. Placed on a the facility electrolytes replenishment and monitoring protocol IV MgSO42 g over2 hours, recheck magnesium q.8h. Strict Is&Os, monitor BUN creatinine trends. Cardiology Continue Lovenox 40 mg subQ q.d. or adjusted therapeutic if not prophylactic. Continue rate control if needed p.r.n. with metoprolol. No need for stat Cardiology unless unstable. Echocardiogram . Hepatology Ordered iron studies, TIBC, ferritin. Consider oral [id number] mg daily pending results. Monitor H&H daily. GI/bowel movement Continue famotidine 20 mg p.o. q.d.. Add docusate/senna p.r.n. to prevent impaction. Monitor for BM every48 H. Neurology/psych Frequent mentation daily No current need for neurology consult. If continued request for morphine, consider psych evaluation. Pain management Morphine2 mg q.6h p.r.n. for pain management. Continue IV Tylenol 650 mg q.6h p.r.n.. Reassess daily. Dermatology/skin care Wound care consult for sacral excoriation. Barrier creams, offloading, turning schedule. Pressure injury prevention bundle. Mobility/nutrition PT/OT referral Assess nutritional intake. Consider dietitian evaluation. ATTESTATION BY PHYSICIAN I have seen and examined the patient. I reviewed the documentation, medical decision making, and treatment plan as noted by the resident above. I agree with the findings and plan of care. Zenon Goncalves MD, RAGHAVA R MD Feb 03, 2025 15:40
[2025-02-03] MEDS: BALSAM PERU/CASTOR OIL 60 GM TUBE TP SCH (20:43)
[2025-02-04] VITALS (8 sets, daily range): BP systolic 104–143; BP diastolic 49–68; PULSE 84–110; RESP 16–22; TEMP 97.9–99; O2SAT 93
[2025-02-04 06:35] LABS: ALBUMIN 2.7 g/dL (3.5-5.0); BILIRUBIN,TOTAL 0.2 mg/dL (0.2-1.0); CREATININE 0.6 mg/dL (0.5-1.0); POTASSIUM 4.1 mmol/L (3.5-5.1); TOTAL PROTEIN, SERUM 6.6 g/dL (6.0-8.3)
[2025-02-04 07:01] LABS: BASOPHILS # (AUTO) 0.02 K/uL (0.00-0.20); BASOPHILS % (AUTO) 0.2 % (0.0-5.0); EOSINOPHILS # (AUTO) 0.42 K/uL (0.00-0.70); EOSINOPHILS % (AUTO) 4.8 % (0.0-8.0); HEMATOCRIT 36.2 % (36-48); IMMATURE GRANULOCYTE ABSOLUTE 0.05 K/uL (0-1); MEAN CORPUSCULAR HEMOGLOBIN 19.7 pg (27.0-33.0); MEAN CORPUSCULAR HGB CONC 27.3 g/dL (32.0-36.0); MONOCYTES # (AUTO) 0.3 K/uL (0.1-1.0); MONOCYTES % (AUTO) 3.8 % (3.0-13.0); NEUTROPHILS % (AUTO) 79.6 % (40.0-77.0); PLATELET COUNT (AUTO) 328 K/uL (130-400); RED BLOOD CELL COUNT(AUTO) 5.03 MIL/uL (4.00-5.50); RED CELL DISTRIBUTION WIDTH 20.6 % (11.0-15.5); WHITE BLOOD COUNT (AUTO) 8.8 K/uL (4.8-10.8)
--- NOTE | 2025-02-04 07:29 | HMCSR ---
APPROVED REPORT EXAM: Two-dimensional and M-mode echocardiogram with Doppler and color Doppler. INDICATION ICD: Laser structural heart disease versus congestive heart failure 2D Dimensions RVDd3.2 cmLVEF(%)23.4 (>50%)LVED Vol(simp.)75.5 mL IVSd1.2 (0.7-1.1cm)FS(%)11 %LVES Vol(simp.)33.1 mL LVDd3.8 (3.8-5.6cm)LA (2D)3.4 (1.6-4.0cm)LVEF(%, simp.)56 % PWd1.1 (0.7-1.1cm)Ao Root(2D)2.9 (2.0-3.7cm)LA ESV INDEX (BP)26.58 mL/m2 LVDs3.4 (2.5-4.0cm)LVOT diam1.9 (1.8-2.4cm) IVC diam1.4 cm Deformation Strain Apical 4-15.0 % Apical 2-19.0 % Apical 3-14.0 % Global Strain-16.0 % M-Mode Dimensions EPSS0.5 cm LA (MM)3.4 (1.6-4.0cm) Ao Root(MM)2.7 (2.0-3.7cm) Aortic Valve AoV Vmax1.4 m/Moon Peak GR8.1 mmHgLVOT Vmax1.2 m/s AoV VTI0.3 mAo Mean GR4.9 mmHgLVOT VTI0.25 m GENTRY (VMAX)2.8 cm2AVA (VTI) 2.8 cm2 Mitral Valve MV E Vmax63.9 cm/sDECEL Hbfv442 ms MV A Vmax80.7 cm/sP 1/2 T49 ms E/A ratio0.8MVA (PHT)4.5 cm2 TDI E/E' Medial9.1 Medial E' Peak V7.00 cm/s Pulmonary Valve PV Vmax1.2 m/s Left Ventricle The left ventricle is normal size. GS -16%. Septal bounce is present. There is normal left ventricula r wall thickness. LVEF is 55-60%. The left ventricular diastolic function is normal. Right Ventricle The right ventricle is normal size. The right ventricular systolic function is normal. Atria The left atrium size is normal. The right atrium size is normal. Aortic Valve The aortic valve is normal in structure. No aortic regurgitation is present. There is no aortic valvu lar stenosis. Mitral Valve The mitral valve is normal in structure. Mitral regurgitation is trace. There is no mitral valve sten osis. Tricuspid Valve The tricuspid valve is normal in structure. There is no tricuspid valve regurgitation noted. Pulmonic Valve The pulmonary valve is normal in structure. There is no pulmonic valvular regurgitation. Great Vessels The aortic root is normal in size. The IVC is normal in size and collapses <50% with inspiration. Pericardium There is no pericardial effusion. Other Information Quality : ExcellentRhythm : NSR Conclusion LVEF is 55-60%. Septal bounce is present. No significant valvular abnormalities.
--- NOTE | 2025-02-04 08:50 | NUR ---
PT CALLED UPSET HER OATMEAL WAS COLD. PCT OFFERED TO REHEAT IT; PT UPSET AND THREW OATMEAL AT PCT
--- NOTE | 2025-02-04 09:55 | NUR ---
WAS IN ROOM DOING AM MED PASS. DIETARY STAFF AT DOOR ASKING NICOLE LUNCH MENU PREFERENCE. PT STATED NOTHING, SHE DIDN'T LIKE THE CHOICES AND DIDN'T WANT ANYTHING FOR LUNCH. THEN SHE WAS UPSET BECAUSE HER BREAKFAST TRAY WAS STILL ON HER TABLE, GRABBED HER ORANGE JUICE, OPENED IT AND SPILLED IT ONTO HER TABLE AND ONTO HERSELF. BEDSIDE TABLE CLEANED AND MOVED TO THE SIDE PER HER REQUEST
--- NOTE | 2025-02-04 11:32 | PN ---
[facility] PROGRESS NOTE Date of Service: Feb 04, 2025 Time of Service: 11:25 SUBJECTIVE: Ms. Flowers is a 65-year-old female that was seen and examined today on 01/31/2025. Patient is a poor historian. The following was obtained from medical records available to me from a prior admission and emergency room physician report. According to emergency room physician: 65-year-old female brought in via EMS for weakness possible urinary tract infection. Patient has a permanent indwelling Dodd states they took cultures couple of days ago but did not have any results. Patient states she has a Dodd due to excoriated skin of the buttocks area from being bed ridden. As per EMS family stated she had an episode of disorientation but is now resolved. Patient has a time he is awake alert and oriented x4, denies having any fevers, nausea, vomiting, back pain. Today in the emergency department potassium 2.4, magnesium 1.6, urinalysis positive for leukocyte esterase and WBCs too many to count. Emergency room physician recommended that patient be admitted with a diagnosis of hypokalemia and UTI. 02/01/25 84-year-old female was admitted via EMS for evaluation of generalized weakness and suspected UTI. The patient is bed bound for the past year, and has an indwelling Dodd catheter due to excoriated buttocks from prolonged immobility. She reports vague joint pain weakness arms knees hips and stiffness in hands, with frequent requests for morphine. No clear focal tenderness noted. Via EMS reported a transient episode of disorientation which has since resolved. The patient is currently awake, alert but but not clearly comprehending her condition and her symptoms. And denies fever, chills, nausea, vomiting or bowel incontinence. She has a history of AFib, anemia and chronic constipation and prior hospitalization for fecal impaction. CT abdomen on 04/06/2024 revealed hiatal hernia, fluid-filled distal esophagus and an L3 vertebral fracture she denies chest pain or shortness of breath or palpitations. She complains of dark urine. Appetite and fluid intake unclear due to altered functional status. 02/02/25 patient seen and examined. She has a poor insight into her condition but seems to be more alert and clinically stable at this point. Continue to monitor for relapse 02/03/25 He was evaluated at bedside today and is clinically improving. She reports increased energy, increased oral intake, and compliance with all medications. Denies fever chills, chest pain, dyspnea or abdominal pain. No vomiting or nausea. She has continued participation in PT/OT . No new urinary symptoms. Awaiting definitive antibiotic deescalation plan from ID, who is actively managing the ESBL infection. 02/04/25 The patient was examined at bedside. Patient is currently hemodynamically stable, afebrile and on room air with oxygen saturation of 93%. She reports improvement in her overall condition, denies fever, chills, nausea or vomiting today. Still describes mild joint discomfort in rest and hips. She continues to be noncompliant with food and medication, requiring encouragement and frequent nursing prompts. She is awaiting Infectious Disease recommendation for antibiotic adjustments given her ESBL organism sensitivity. REVIEW OF SYSTEMS CONSTITUTIONAL: Denies fevers, chills, or night sweats. No unintentional weight loss reported. NEUROLOGICAL: Denies headache, amaurosis fugax, motor weakness, sensory deficit, vertigo/spinning sensation, gait abnormalities, or tremors. ENT: No hearing loss, otalgia, otorrhea, rhinitis, rhinorrhea, hoarseness, or sore throat. CARDIOVASCULAR: Denies any exertional angina, dyspnea on exertion, orthopnea, paroxysmal nocturnal dyspnea, palpitations, life-threatening arrhythmias, claudication. PULMONARY: Denies any shortness of breath, cough, phlegm/sputum, hemoptysis, pleuritic chest pain. SLEEP: Denies morning headaches, daytime somnolence or napping. Denies difficulty falling asleep, staying asleep, waking from sleep. Denies knowledge of snoring. GASTROINTESTINAL: Denies any type of dysphagia to either liquids or solids. Denies nausea, vomiting, pyrosis, early satiety, abdominal pain, diarrhea, constipation, or changes in stool consistency or caliber. Denies coffee-ground emesis, hematemesis, hematochezia, or melanotic stools. GENITOURINARY: Denies frequency, urgency, nocturia, hematuria or incontinence (Storage/Irritative symptoms.) Low urinary stream, straining to void, urinary intermittency or hesitancy, splitting of the voiding stream, terminal dribbling. ENDOCRINOLOGIC: Denies polyuria, polydipsia, polyphagia or heat/cold intolerances. HEMATOLOGIC: Denies thrombophilia/previous clots, or coagulopathy/bleeding disorders. ONCOLOGIC: Denies personal history of malignancy. DERMATOLOGIC: Denies rashes or pruritus. PSYCHIATRIC: Denies any suicidal or homicidal ideation. Denies hallucinations. PHYSICAL EXAM GENERAL APPEARANCE: The patient is awake, alert, and oriented, in no acute cardiopulmonary distress. NEUROLOGICAL: Cranial nerves II-XII grossly intact. Motor is 5/5 in bilateral upper and lower extremities proximal to distal. No sensory deficits. HEENT: Face is symmetric. Pupils are equal and reactive. Extraocular movements are intact. NECK: Supple. No JVD. No thyromegaly. No submental, submandibular, pre- /postauricular, occipital or supraclavicular lymphadenopathy. CHEST: Normal chest expansion. No Telemetry. LUNGS: Absence of any rales, rhonchi or any wheezing. CARDIOVASCULAR: Regular. S1 and S2 normal. No appreciable rubs, murmurs or gallops. ABDOMEN: Soft, nontender, and nondistended. There is no rebound, voluntary guarding, or rigidity. : Deferred. No Dodd. EXTREMITIES: Non-edematous and not cyanotic. No clubbing. Good capillary refill. SKIN: No skin breakdown. Vital Signs (last 8hr) Date Time Temp Pulse Resp B/P (MAP) Pulse Ox O2 Delivery O2 Flow Rate FiO2 02/04/25 07:54 99.0 99 22 142/62 93 02/04/25 07:33 93 Room Air* 0 21 02/04/25 03:54 98.4 85 16 129/58 93 Room Air LABS: Laboratory: Test 02/04/25 06:03 02/04/25 05:17 Range/Units White Blood Count 8.8 # 4.8-10.8 K/uL Red Blood Count 5.03 4.00-5.50 MIL/uL Hemoglobin 9.9 L 12.0-16.0 g/dL Hematocrit 36.2 36-48 % Mean Corpuscular Volume 72.0 L 79-99 fL Mean Corpuscular Hemoglobin 19.7 L 27.0-33.0 pg Mean Corpuscular Hemoglobin Concent 27.3 L 32.0-36.0 g/dL Red Cell Distribution Width 20.6 H 11.0-15.5 % Platelet Count 328 130-400 K/uL Mean Platelet Volume 9.5 7.5-10.5 fL Immature Granulocyte % (Auto) 0.6 0-1 % Neutrophils (%) (Auto) 79.6 H 40.0-77.0 % Lymphocytes (%) (Auto) 11.0 L 21.0-51.0 % Monocytes (%) (Auto) 3.8 3.0-13.0 % Eosinophils (%) (Auto) 4.8 0.0-8.0 % Basophils (%) (Auto) 0.2 0.0-5.0 % Neutrophils # (Auto) 7.0 1.8-7.7 K/uL Lymphocytes # (Auto) 1.0 1.0-4.8 K/uL Monocytes # (Auto) 0.3 0.1-1.0 K/uL Eosinophils # (Auto) 0.42 0.00-0.70 K/uL Basophils # (Auto) 0.02 0.00-0.20 K/uL Absolute Immature Granulocyte (auto 0.05 0-1 K/uL Nucleated Red Blood Cells 0.0 0.0-0.19 % Sodium Level 142 136-145 mmol/L Potassium Level 4.1 3.5-5.1 mmol/L Chloride Level 106 101-111 mmol/L Carbon Dioxide Level 31 21-32 mmol/L Blood Urea Nitrogen 3 L 7-18 mg/dL Creatinine 0.6 0.5-1.0 mg/dL Glomerular Filtration Rate Calc 100 >90 mL/min Random Glucose 112 H 70-105 mg/dL Total Calcium 8.9 8.5-10.1 mg/dL Total Bilirubin 0.2 # 0.2-1.0 mg/dL Aspartate Amino Transf (AST/SGOT) 15 10-37 U/L Alanine Aminotransferase (ALT/SGPT) 9 L 12-78 U/L Alkaline Phosphatase 172 H 50-136 U/L Total Protein 6.6 6.0-8.3 g/dL Albumin 2.7 L 3.5-5.0 g/dL Whole Blood Glucose 117 H 70-110 MG/DL Current Medications Medications (Trade) Dose Ordered Sig/Brunilda Route PRN Reason Start Time Stop Time Status Last Admin Dose Admin Acetaminophen (TYLenol 325MG TAB) 650 mg ONCE PO 01/31/25 18:30 01/31/25 21:30 DC Acetaminophen (TYLenol 325MG TAB) 650 mg Q6H PRN PO TEMPERATURE GREATER THAN 101.5 01/31/25 20:30 03/02/25 20:29 Acetaminophen (acetaMINOPHEN) 500 mg Q6H6 IVPB 02/01/25 18:00 02/01/25 12:45 DC Acetaminophen (acetaMINOPHEN) 650 mg Q6H PRN IVPB MILD PAIN (1-3) 02/01/25 19:30 03/03/25 19:29 Acetaminophen (acetaMINOPHEN) 1,000 mg Q6H IVPB 02/01/25 13:30 02/01/25 16:53 DC 02/01/25 14:02 1,000 MG Atorvastatin Calcium (LIPItor 40MG) 40 mg DAILY PO 02/02/25 09:00 03/04/25 08:59 02/04/25 09:56 40 MG Ceftriaxone Sodium (ROCEphine 1G INJ) 1 gm ONCE IVPB 01/31/25 19:22 01/31/25 23:59 DC 01/31/25 19:33 1 GM Ceftriaxone Sodium (ROCEphine 1G INJ) 1 gm Q24H IV 01/31/25 20:30 02/10/25 20:29 02/03/25 20:28 1 GM Cyclobenzaprine HCl (Cyclobenzaprine HCl) 5 mg HS PRN PO MUSCLE SPASMS 02/01/25 17:30 03/03/25 17:29 Enoxaparin Sodium (Lovenox) 40 mg DAILY SQ 02/01/25 09:00 03/03/25 08:59 02/04/25 09:56 40 MG Famotidine (Pepcid 20mg Tab) 20 mg DAILY PO 02/01/25 09:00 03/03/25 08:59 02/04/25 09:56 20 MG Ferrous Sulfate (Ferrous Sulfate) 325 mg TID PO 02/01/25 21:00 03/03/25 20:59 02/04/25 09:56 325 MG Fluoxetine HCl (FLUoxetine HCL 20 MG CAPSULE) 20 mg DAILY PO 02/02/25 09:00 03/04/25 08:59 02/04/25 09:56 20 MG Gabapentin (NEURontin 300 MG CAP) 900 mg TID PO 02/01/25 21:00 03/03/25 20:59 02/04/25 09:57 900 MG Home Med (Home Medication) (Plecanatide (Trulance) 1 TAB) DAILY PO 02/02/25 09:00 03/04/25 08:59 Home Med (Home Medication) (Sennosides/ Docusate Sodium (Senexon-S 50-... HS PO 02/01/25 21:00 03/03/25 20:59 Hydralazine HCl (APRESOLine 20MG INJ) 10 mg Q6H PRN IV For:SBP above 160;DBP above 90 01/31/25 20:30 03/02/25 20:29 Hydroxyzine HCl (ATArax 25MG TAB) 25 mg BID PRN PO ITCHING 02/01/25 17:00 03/03/25 16:59 Magnesium Sulfate 50 ml @ 0 mls/hr PROTOCOL PRN IV h 01/31/25 20:30 03/02/25 20:29 01/31/25 21:22 25 MLS/HR Meloxicam (Mobic 7.5mg) 15 mg DAILY PO 02/02/25 09:00 03/04/25 08:59 02/04/25 09:56 15 MG Morphine Sulfate (morPHINE 2MG SYG) 1 mg Q6H6 PRN IVP FOR SEVERE PAIN (7 to 10) 02/02/25 16:30 02/09/25 16:29 02/04/25 07:00 1 MG Morphine Sulfate (morPHINE 2MG SYG) 2 mg ONCE IVP 01/31/25 18:59 01/31/25 23:59 DC 01/31/25 22:09 2 MG Morphine Sulfate (morPHINE 2MG SYG) 2 mg ONCE STAT IVP 02/01/25 22:19 02/01/25 22:21 DC 02/01/25 22:39 2 MG Morphine Sulfate (morPHINE 4MG SYG) 2 mg Q4H PRN IVP SEVERE PAIN (7-10) 01/31/25 20:30 02/01/25 12:34 DC 02/01/25 08:20 2 MG Ondansetron HCl (zoFRAN 4MG INJ) 4 mg ONCE IVP 01/31/25 18:59 01/31/25 23:59 DC 01/31/25 19:34 4 MG Ondansetron HCl (zoFRAN 4MG INJ) 4 mg Q6H PRN IV NAUSEA/VOMITING 01/31/25 20:30 03/02/25 20:29 02/01/25 02:57 4 MG Potassium Chloride 100 ml @ 100 mls/hr AD PRN IV POTASSIUM PROTOCOL 01/31/25 20:30 03/02/25 20:29 02/03/25 08:38 100 MLS/HR Potassium Chloride 100 ml @ 100 mls/hr ONCE IV 01/31/25 19:30 01/31/25 23:59 DC 01/31/25 19:34 100 MLS/HR Potassium Chloride (K-Dur/Klor-Con 20meq) 20 meq AD PRN PO POTASSIUM PROTOCOL 01/31/25 20:30 03/02/25 20:29 Potassium Chloride (KCl 10% Elixir 20meq/15ml) 20 meq AD PRN PO POTASSIUM PROTOCOL 01/31/25 20:30 03/02/25 20:29 02/03/25 20:30 20 MEQ Sucralfate (Carafate) 1 gm DAILY PO 02/02/25 09:00 03/04/25 08:59 02/04/25 09:56 1 GM Trazodone HCl (DesyREL/OlepTRO) 50 mg HS PO 02/01/25 21:00 03/03/25 20:59 02/03/25 20:29 50 MG Wound Care/ Dressing Products (Venelex Ointment) 1 APPL TOPICAL BID BID TP 02/03/25 21:00 03/05/25 20:59 02/03/25 20:43 1 GM Zolpidem Tartrate (AmbIEN) 10 mg HS PRN PO INSOMNIA 02/01/25 17:30 03/03/25 17:29 DIAGNOSTICS / RADIOLOGY: [ ]PATIENT: GAYLE FLOWERS MR#: [id number] : 1960 SEX: F AGE: 65 LOCATION: [facility] ORDER 09 STATUS: REG ER REPORT#: [id number] SERVICE 08 REASON: ams ORDERING PHYSICIAN: JOANN WRAY NP PROCEDURE: HEAD WO - CT HEAD/BRAIN W/O CONTRAST CT HEAD WITHOUT CONTRAST INDICATION: AMS TECHNIQUE: Noncontrast axial helical CT images from the vertex through the skull base using 5 mm slice thickness without contrast material. CT was performed with one or more of the following dose reduction techniques: Automated exposure control, adjustment of the mA and/or kV according to patient size, or use of iterative reconstruction technique. COMPARISON: None FINDINGS: The cerebral and cerebellar hemispheres are age-appropriate in appearance. No evidence for abnormal extra-axial fluid collections or masses. The ventricles and sulci are normal in size and configuration. No evidence for intracranial parenchymal, epidural, or subdural hemorrhage, mass effect or midline shift. The kay-white matter differentiation is well preserved. No secondary evidence to suggest acute ischemia. The brainstem and cerebellum appear normal. The visualized orbits appear unremarkable. The visible paranasal sinuses and mastoid air cells are clear. The calvarium appears normal. IMPRESSION: No acute intracranial process identified. DICTATED BY: TALI RODRIGUEZ MD DATE: 01/31/251935 ELECTRONICALLY SIGNED BY: TALI RODRIGUEZ MD DATE: 01/31/251942 PATIENT: GAYLE FLOWERS MR#: [id number] : 1960 SEX: F AGE: 65 LOCATION: [facility] ORDER 1701 STATUS: ADM IN REPORT#: [id number] SERVICE 58 REASON: Laser structural heart disease versus congestive heart failure ORDERING PHYSICIAN: FRANNIE PRESCOTT MD PROCEDURE: ECHO CMP - ECHO 2-D COMPLETE APPROVED REPORT EXAM: Two-dimensional and M-mode echocardiogram with Doppler and color Doppler. INDICATION ICD: Laser structural heart disease versus congestive heart failure 2D Dimensions RVDd 3.2 cm LVEF(%) 23.4 (>50%) LVED Vol(simp.) 75.5 mL IVSd 1.2 (0.7-1.1cm) FS(%) 11 % LVES Vol(simp.) 33.1 mL LVDd 3.8 (3.8-5.6cm) LA (2D) 3.4 (1.6-4.0cm) LVEF(%, simp.) 56 % PWd 1.1 (0.7-1.1cm) Ao Root(2D) 2.9 (2.0-3.7cm) LA ESV INDEX (BP) 26.58 mL/m2 LVDs 3.4 (2.5-4.0cm) LVOT diam 1.9 (1.8-2.4cm) IVC diam 1.4 cm Deformation Strain Apical 4 -15.0 % Apical 2 -19.0 % Apical 3 -14.0 % Global Strain -16.0 % M-Mode Dimensions EPSS 0.5 cm LA (MM) 3.4 (1.6-4.0cm) Ao Root(MM) 2.7 (2.0-3.7cm) Aortic Valve AoV Vmax 1.4 m/s Ao Peak GR 8.1 mmHg LVOT Vmax 1.2 m/s AoV VTI 0.3 m Ao Mean GR 4.9 mmHg LVOT VTI 0.25 m GENTRY (VMAX) 2.8 cm2 GENTRY (VTI) 2.8 cm2 Mitral Valve MV E Vmax 63.9 cm/s DECEL Time 206 ms MV A Vmax 80.7 cm/s P 1/2 T 49 ms E/A ratio 0.8 MVA (PHT) 4.5 cm2 TDI E/E' Medial 9.1 Medial E' Peak V 7.00 cm/s Pulmonary Valve PV Vmax 1.2 m/s Left Ventricle The left ventricle is normal size. GS -16%. Septal bounce is present. There is normal left ventricular wall thickness. LVEF is 55-60%. The left ventricular diastolic function is normal. Right Ventricle The right ventricle is normal size. The right ventricular systolic function is normal. Atria The left atrium size is normal. The right atrium size is normal. Aortic Valve The aortic valve is normal in structure. No aortic regurgitation is present. There is no aortic valvular stenosis. Mitral Valve The mitral valve is normal in structure. Mitral regurgitation is trace. There is no mitral valve stenosis. Tricuspid Valve The tricuspid valve is normal in structure. There is no tricuspid valve regurgitation noted. Pulmonic Valve The pulmonary valve is normal in structure. There is no pulmonic valvular regurg itation. Great Vessels The aortic root is normal in size. The IVC is normal in size and collapses <50% with inspiration. Pericardium There is no pericardial effusion. Other Information Quality : Excellent Rhythm : NSR Conclusion LVEF is 55-60%. Septal bounce is present. No significant valvular abnormalities. DICTATED BY: LIZ SNOW DO DATE: 02/03/25 0754 ELECTRONICALLY SIGNED BY: LIZ SNOW DO DATE: 02/04/25 0865 ASSESSMENT: Complicated UTI with indwelling Dodd catheter Metabolic encephalopathy Hypokalemia Hypomagnesemia Atrial fibrillation chronic, rate controlled currently, on Lovenox Anemia, likely iron deficiency Generalized weakness Bed-bound status with pressure injury risk History of constipation/fecal impaction Pain likely functional or neuropathic Disorientation Functional quadriplegia PLAN: WBC count is 8.8, hemoglobin is at 9.9, hematocrit 36.2, MCV is at 72 and MCH is about 19.7, creatinine 0.6 and BUN 3 low. Microbiology revealed urine culture more than [id number] colony-forming units ESBL positive Klebsiella pneumoniae sensitive to Zosyn levofloxacin and gentamicin. Blood culture no growth in 2 3 days. Admit patient to medical floor as inpatient status. Place patient on telemetry monitoring. Fall precautions. Replace potassium per hospital protocol. Replace magnesium per protocol. Check urine culture, follow up with the results. Empiric antibiotic therapy with Rocephin. Consider resuming home medications once they have been reconciled. GI prophylaxis, famotidine DVT prophylaxis, Lovenox Infectious disease Continue ceftriaxone1 g IV Q 24 H. Awaiting definitive antibiotic adjustments by ID. Dodd catheter exchange or removal if feasible. WBC and vital monitoring. Renal/electrolytes. IV KCl 40 mEq in NS over4 hours into 2, recheck q.4h. Placed on a the facility electrolytes replenishment and monitoring protocol IV MgSO42 g over2 hours, recheck magnesium q.8h. Strict Is&Os, monitor BUN creatinine trends. Cardiology Continue Lovenox 40 mg subQ q.d. or adjusted therapeutic if not prophylactic. Continue rate control if needed p.r.n. with metoprolol. No need for stat Cardiology unless unstable. Echocardiogram . Hepatology Ordered iron studies, TIBC, ferritin. Consider oral [id number] mg daily pending results. Monitor H&H daily. GI/bowel movement Continue famotidine 20 mg p.o. q.d.. Add docusate/senna p.r.n. to prevent impaction. Monitor for BM every48 H. Neurology/psych Frequent mentation daily No current need for neurology consult. If continued request for morphine, consider psych evaluation. Pain management Morphine2 mg q.6h p.r.n. for pain management. Continue IV Tylenol 650 mg q.6h p.r.n.. Reassess daily. Dermatology/skin care Wound care consult for sacral excoriation. Barrier creams, offloading, turning schedule. Pressure injury prevention bundle. Mobility/nutrition PT/OT referral Assess nutritional intake. Consider dietitian evaluation. ATTESTATION BY PHYSICIAN I have seen and examined the patient. I reviewed the documentation, medical decision making, and treatment plan as noted by the resident above. I agree with the findings and plan of care. Zenon Goncalves MD, RAGHAVA R MD Feb 04, 2025 11:32
--- NOTE | 2025-02-04 12:51 | NUR ---
PATIENT CALLING, UPSET THAT STAFF NEEDED TO BRING HER ITEMS [facility]HT BY DAUGHTER. PCT RETURNED WITH [address] GARTH RODRIGUEZ AND [address] MONTILLA BOTTLES
--- NOTE | 2025-02-04 13:11 | NUR ---
PHYSICAL THERAPY IN ROOM. DID GET PATIENT TO STAND UP AT [place] OF BED X [address] WAFFLE MATTRESS TO BED D/T ST BUTTOCK ULCER
[2025-02-04] MEDS: ZOSYN 3.375GM +NS 50ML IV SCH (13:51)
--- NOTE | 2025-02-04 14:00 | NUR ---
PT C/O PAIN, ADMINISTERED MORPHINE PRN. PT ASKING THE DOSAGE AND WHEN TOLD IT WAS 1MG SHE STATED "THAT IS NOT ENOUGH TO GET RID OF HER PAIN"
--- NOTE | 2025-02-04 16:45 | NUR ---
CALLED PHARMACY TO DISPENSE A TUBE OF VENELEX I WAS UNABLE TO FIND THE ONE DISPENSED YESTERDAY. PATIENT STATED SHE HADN'T SEEN ANY CREME IN ROOM
[2025-02-04] MEDS: LACTULOSE 20 GM/30 ML UDCUP PO PRN (20:07)
[2025-02-04] MEDS: CYCLOBENZAPRINE HCL 10 MG TABLET PO PRN (20:07)
--- NOTE | 2025-02-04 20:26 | CONS ---
INFECTIOUS DISEASE CONSULTATION DATE OF SERVICE: 02/04/2025 REQUESTING PHYSICIAN: Zenon Goncalves MD REASON FOR CONSULTATION: UTI and antibiotic management. HISTORY OF PRESENT ILLNESS: This is a 65-year-old female with history of obesity, spinal cord injury and bedbound status with neurogenic bladder, who presented to the hospital with weakness and fatigue. The patient was found to have UTI and subsequently admitted. The patient's urine culture came back with Klebsiella pneumoniae. The patient at present is on ceftriaxone. No cough, no shortness of breath, no palpitation or orthopnea. No rashes, no itchiness. No bleeding tendency. Denied depression. No suicidal ideation. PAST MEDICAL HISTORY: * Dyslipidemia. * Obesity. * Spinal stenosis. PAST SURGICAL HISTORY: Spinal decompression. ALLERGIES: No known drug allergy. CURRENT MEDICATIONS: Reviewed. SOCIAL HISTORY: Denies alcohol, tobacco or illicit drugs. FAMILY HISTORY: Noncontributory. REVIEW OF SYSTEMS: Greater than 10 systems were reviewed, negatives as documented above. PHYSICAL EXAMINATION: GENERAL: Elderly female, awake. VITAL SIGNS: Temperature 97.9, pulse 110, respirations 16, BP 125/66. EYES: No icterus. Pupils equal and reactive. HENT: No oral thrush seen. Moist oral mucosa. NECK: Supple. No JVD or thyromegaly. LUNGS: Good air entry. No rales. No rhonchi. CARDIOVASCULAR: S1, S2 regular. No murmur heard. ABDOMEN: Obese, soft, nontender. Bowel sound is present. CENTRAL NERVOUS SYSTEM: Awake, alert, oriented x 3. Bedbound, ____ lower extremities. SKIN: No rashes. No itchiness. LYMPHATIC: No peripheral lymphadenopathy. BACK: No deformity. No pressure ulcer. GENITOURINARY: Dodd catheter in place. No hematuria. LABORATORY DATA: WBC 8.1, hemoglobin 9.9, platelet 320. Culture grew Klebsiella pneumoniae (ESBL). ASSESSMENT: A 65-year-old female admitted with weakness. Current problems include: * Urinary tract infection. * History of multidrug resistant organism. * Morbid obesity. * Urinary retention. * ____ bladder. * Anemia. PLAN: * Continue ceftriaxone. * Start the patient on Zosyn. * Dodd catheter should be changed every 2 weeks. * Continue pain management. * Continue DVT prophylaxis. * Continue nutritional support. * The patient will be followed up closely. Thank you for allowing me to participate in the care of this patient. TID: [id number] RECEIPT: [id number]
[2025-02-05 04:00] VITALS: BP 116/58; PULSE 80; RESP 17; TEMP 98.5
[2025-02-05 08:00] VITALS: BP 115/53; PULSE 75; RESP 18; TEMP 98.6; O2SAT 92
[2025-02-05 09:57] LABS: BASOPHILS # (AUTO) 0.02 K/uL (0.00-0.20); BASOPHILS % (AUTO) 0.3 % (0.0-5.0); EOSINOPHILS # (AUTO) 0.48 K/uL (0.00-0.70); EOSINOPHILS % (AUTO) 6.3 % (0.0-8.0); IMMATURE GRANULOCYTE ABSOLUTE 0.05 K/uL (0-1); LYMPHOCYTES # (AUTO) 0.7 K/uL (1.0-4.8); LYMPHOCYTES % (AUTO) 9.7 % (21.0-51.0); MEAN CORPUSCULAR HEMOGLOBIN 19.7 pg (27.0-33.0); MEAN CORPUSCULAR HGB CONC 27.3 g/dL (32.0-36.0); MEAN CORPUSCULAR VOLUME 72.4 fL (79-99); MONOCYTES # (AUTO) 0.3 K/uL (0.1-1.0); MONOCYTES % (AUTO) 3.4 % (3.0-13.0); NEUTROPHILS # (AUTO) 6.1 K/uL (1.8-7.7); NEUTROPHILS % (AUTO) 79.6 % (40.0-77.0); PLATELET COUNT (AUTO) 373 K/uL (130-400); RED BLOOD CELL COUNT(AUTO) 4.56 MIL/uL (4.00-5.50); RED CELL DISTRIBUTION WIDTH 20.5 % (11.0-15.5); WHITE BLOOD COUNT (AUTO) 7.6 K/uL (4.8-10.8)
[2025-02-05 10:11] LABS: ALBUMIN 2.5 g/dL (3.5-5.0); BILIRUBIN,TOTAL 0.3 mg/dL (0.2-1.0); CREATININE 0.6 mg/dL (0.5-1.0); TOTAL PROTEIN, SERUM 6.2 g/dL (6.0-8.3)
[2025-02-05 12:00] VITALS: BP 119/61; PULSE 82; RESP 18; TEMP 98.4
--- NOTE | 2025-02-05 14:58 | DS ---
Discharge Summary Hospital Course Summary: The patient was admitted for evaluation and management of weakness, functional decline, and possible UTI. She was found to have positive urinalysis and urine culture, confirming a complicated UTI due to ESBL-producing bacteria. Infectious Disease was consulted and she was initiated on IV ceftriaxone initially and later transitioned to piperacillin-tazobactam (Zosyn) after ESBL confirmation. She was monitored with serial labs, which showed initial leukocytosis (WBC 11.0), microcytic anemia, and electrolyte imbalances, including hypokalemia (K+ 2.6) and hypoalbuminemia (Alb 2.7). These values improved with potassium supplementation and supportive care. Final WBC normalized to 7.6, Hgb stabilized at 9.0, Hct 33.0, and neutrophils 79.6%. CMP remained unremarkable, with BUN low at 3 and Creatinine stable at 0.6. She remained hemodynamically stable, afebrile, and breathing on room air throughout admission. Urine output remained slightly low (~0.46 mL/kg/hr) but stable. She was noted to be chronically debilitated and bedbound with a high fall risk and had been medically non-compliant with medications and food early in her admission. A comprehensive care plan was initiated, involving wound care for sacral excoriations, nutrition consult, physical and occupational therapy, and social work for placement. She showed improvement in overall function and was accepted to inpatient rehab for further physical therapy and functional recovery. She was declared medically stable today and cleared for discharge to IRF with continuation of IV Zosyn for 10 more days. 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): Infectious Disease, Wound Care Procedure(s): RUN DATE: 02/05/25 [facility] RUN TIME: [id number] [place] [address] Department of Laboratories [facility] # [id number] Knit Goods Cutter Hand: Gregoria Dove DO Specimen Report PATIENT: GAYLE CHOW ACCT: [id number] LOC: 3D U: [id number] AGE/SX: 65/F ROOM: 322 RE01/31/[address]: ANNIE LOCO MD : 1960 BED: 1 DIS: STATUS: ADM IN TLOC: SPEC: [id number] REN: 02/01/25 STATUS: RES REQ: [id number] RECD: 02/01/[address]: FRANNIE PRESCOTT MD SOURCE: BLOOD ENTR: 02/01/25 [facility] DR: ANNIE LOCO MD SPDC: NONE ORDERED: BLOOD CULTURE COMMENTS: What is the Source? BLOOD Procedure Result Jose Date-Time BLOOD CULT Preliminary 02/05/25-6 NO GROWTH AFTER 4 DAYS RUN DATE: 02/02/25 [facility] RUN TIME: [id number] [address], [place] [address] Department of Laboratories CLIA # [id number] Knit Goods Cutter Hand: Gregoria Dove DO Specimen Report PATIENT: GAYLE CHOW ACCT: [id number] LOC: [facility] U: [id number] AGE/SX: 65/F ROOM: [facility] RE01/31/[address]: ANNIE LOCO MD : 1960 BED: 1 DIS: STATUS: ADM IN TLOC: SPEC: [id number] REN: 01/31/25 STATUS: COMP REQ: [id number] RECD: 02/01/[address]: JOANN WRAY NP SOURCE: [facility] [place]: 02/01/25 DEB WOOD: BETSY SPDESC: CLEAN CAT ORDERED: AERO ID & SENS COMMENTS: CALLED TO NURSE LAURY 1525 JAKOB 02/02/25 Procedure Result Jose Date-Time AEROBIC ID & SENSITIVITIES Final 02/02/25-0632 MRL EXTENDED SPECTRUM BETA-LACTAMASE ORGANISM IDENTIFIED. CRITICAL RESULT WAS CALLED BY JACE RIDER ON 02/02/25 AT 0630. CRITICAL VALUES WERE READ BACK AND ACKNOWLEDGED BY ALFONSO GUPTA ([facility] [place]) COLONY DESCRIPTION: DAY 1: COLONY COUNT: >100,000 CFU/ML GRAM NEGATIVE RODS IDENTIFICATION AND SENSITIVITY TO FOLLOW COMMENTS(R): ESBL KLEBSIELLA PNEUMONIAE K PNEUMO M.I.C. RX --------- ---- AZTREONAM >16 ESBL CEFAZOLIN >16 R* CEFTAZIDIME >16 ESBL CEFTAZIDIME/AVIBACTAM <=8 S CEFTRIAXONE >2 ESBL GENTAMICIN <=2 S LEVOFLOXACIN <=0.5 S NITROFURANTOIN 64 I MEROPENEM <=1 S PIPERACILLIN/TAZOBACTAM <=8 S TRIMETHOPRIM/SUFLAMETHOXAZOLE >2/38 R KLEBSIELLA PNEUMONIAE: NEGATIVE/URINE COMBO 62 Lab Alert - ESBL (Extended-Spectrum Beta-Lactamase music producer) @ [facility] Test Performed at: [facility] [address], [place], [place] Medical Internet Media Planner: Adam Kinney D.O. END OF REPORT PATIENT: GAYLE CHOW MR#: [id number] : 1960 SEX: F AGE: 65 LOCATION: [facility] ORDER 1810 STATUS: REG ER REPORT#: [id number] SERVICE 180 REASON: ams ORDERING PHYSICIAN: JOANN WRAY NP PROCEDURE: HEAD WO - CT HEAD/BRAIN W/O CONTRAST CT HEAD WITHOUT CONTRAST INDICATION: AMS TECHNIQUE: Noncontrast axial helical CT images from the vertex through the skull base using 5 mm slice thickness without contrast material. CT was performed with one or more of the following dose reduction techniques: Automated exposure control, adjustment of the mA and/or kV according to patient size, or use of iterative reconstruction technique. COMPARISON: None FINDINGS: The cerebral and cerebellar hemispheres are age-appropriate in appearance. No evidence for abnormal extra-axial fluid collections or masses. The ventricles and sulci are normal in size and configuration. No evidence for intracranial parenchymal, epidural, or subdural hemorrhage, mass effect or midline shift. The kay-white matter differentiation is well preserved. No secondary evidence to suggest acute ischemia. The brainstem and cerebellum appear normal. The visualized orbits appear unremarkable. The visible paranasal sinuses and mastoid air cells are clear. The calvarium appears normal. IMPRESSION: No acute intracranial process identified. 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 INDICATION ICD: Laser structural heart disease versus congestive heart failure 2D Dimensions RVDd 3.2 cm LVEF(%) 23.4 (>50%) LVED Vol(simp.) 75.5 mL IVSd 1.2 (0.7-1.1cm) FS(%) 11 % LVES Vol(simp.) 33.1 mL LVDd 3.8 (3.8-5.6cm) LA (2D) 3.4 (1.6-4.0cm) LVEF(%, simp.) 56 % PWd 1.1 (0.7-1.1cm) Ao Root(2D) 2.9 (2.0-3.7cm) LA ESV INDEX (BP) 26.58 mL/m2 LVDs 3.4 (2.5-4.0cm) LVOT diam 1.9 (1.8-2.4cm) IVC diam 1.4 cm Deformation Strain Apical 4 -15.0 % Apical 2 -19.0 % Apical 3 -14.0 % Global Strain -16.0 % M-Mode Dimensions EPSS 0.5 cm LA (MM) 3.4 (1.6-4.0cm) Ao Root(MM) 2.7 (2.0-3.7cm) Aortic Valve AoV Vmax 1.4 m/s Ao Peak GR 8.1 mmHg LVOT Vmax 1.2 m/s AoV VTI 0.3 m Ao Mean GR 4.9 mmHg LVOT VTI 0.25 m GENTRY (VMAX) 2.8 cm2 GENTRY (VTI) 2.8 cm2 Mitral Valve MV E Vmax 63.9 cm/s DECEL Time 206 ms MV A Vmax 80.7 cm/s P 1/2 T 49 ms E/A ratio 0.8 MVA (PHT) 4.5 cm2 TDI E/E' Medial 9.1 Medial E' Peak V 7.00 cm/s Pulmonary Valve PV Vmax 1.2 m/s Left Ventricle The left ventricle is normal size. GS -16%. Septal bounce is present. There is normal left ventricular wall thickness. LVEF is 55-60%. The left ventricular diastolic function is normal. Right Ventricle The right ventricle is normal size. The right ventricular systolic function is normal. Atria The left atrium size is normal. The right atrium size is normal. Aortic Valve The aortic valve is normal in structure. No aortic regurgitation is present. There is no aortic valvular stenosis. Mitral Valve The mitral valve is normal in structure. Mitral regurgitation is trace. There is no mitral valve stenosis. Tricuspid Valve The tricuspid valve is normal in structure. There is no tricuspid valve regurgitation noted. Pulmonic Valve The pulmonary valve is normal in structure. There is no pulmonic valvular regurgitation. Great Vessels The aortic root is normal in size. The IVC is normal in size and collapses <50% with inspiration. Pericardium There is no pericardial effusion. Other Information Quality : Excellent Rhythm : NSR Conclusion LVEF is 55-60%. Septal bounce is present. No significant valvular abnormalities. DICTATED BY: LIZ SNOW DO DATE: 02/03/25 0754 ELECTRONICALLY SIGNED BY: LIZ SNOW DO DATE: 02/04/25 0729 Assessment/Plan: ASSESSMENT: Complicated UTI with indwelling Dodd catheter/ESBL positive Klebsiella pneumoniae Metabolic encephalopathy Hypokalemia Hypomagnesemia Atrial fibrillation chronic, rate controlled currently, on Lovenox Anemia, likely iron deficiency Generalized weakness Bed-bound status with pressure injury risk History of constipation/fecal impaction Pain likely functional or neuropathic Disorientation Functional quadriplegia Discharge Instructions: ADMISSION DATE : 01/31/25 DISCHARGE DATE : 02/05/25 DISPOSITION : Inpatient rehab facility CONDITION : Stable 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 MICROBIOLOGY : Reports attached to summary. ACTIVITY : AD JOSEPHINE HOME MEDICATION : Continued TEACHING : Reinforced the importance of medication compliance and follow-up appointments. Home Medications: Active Scripts [Zosyn 3.375GM+Ns 50ML] 3.375 GM/50 ML IV.SOLN No Conflict Check, 3.375 GM IV Q8H for 10 Days, #10 0 Refills Prov:FRANNIE PRESCOTT MD 02/05/25 Reported Medications Zolpidem Tartrate (Ambien) 10 Mg Tablet, 1 TAB PO HSPRN PRN for sleep for 30 Days, #30 TAB 0 Refills 02/01/25 Sucralfate (Carafate) 1 Gram Tablet, 1 TAB PO DAILY 02/01/25 Furosemide (Furosemide) 40 Mg Tablet, 1 TAB PO DAILY 02/01/25 Plecanatide (Trulance) 3 Mg Tablet, 1 TAB PO DAILY 02/01/25 Pantoprazole Sodium (Pantoprazole Sodium) 40 Mg Tablet.dr, 1 TAB PO DAILY 02/01/25 Fluoxetine HCl (Fluoxetine HCl) 20 Mg Capsule, 20 MG PO DAILY, CAP 04/06/24 Gabapentin (Neurontin) 300 Mg Capsule, 900 MG PO TID, CAP 04/06/24 Sennosides/Docusate Sodium (Senexon-S 50-8.6 mg Tablet) 8.6 Mg-50 Mg Tablet, 2 EACH PO HS, TAB 04/06/24 Famotidine (Famotidine) 20 Mg Tablet, 20 MG PO HS, TAB 04/06/24 Trazodone HCl (Trazodone HCl) 50 Mg Tablet, 50 MG PO HS, TAB 04/06/24 Hydroxyzine HCl (Hydroxyzine HCl) 25 Mg Tablet, 25 MG PO BID PRN for ITCHING, TAB 04/06/24 Atorvastatin Calcium (Atorvastatin Calcium) 40 Mg Tablet, 40 MG PO DAILY, TAB 04/06/24 Meloxicam (Meloxicam) 15 Mg Tablet, 15 MG PO DAILY, TAB 04/06/24 Cyclobenzaprine HCl (Cyclobenzaprine HCl) 5 Mg Tablet, 5 MG PO HS PRN for PAIN, TAB 04/06/24 Aspirin (ASPIRIN 81 MG ECTAB) 81 Mg Ectab, 81 MG PO DAILY, TAB.EC 04/06/24 Ferrous Sulfate (Iron) 325 Mg (65 Mg Iron) Tablet, 325 MG PO TID, TAB 04/06/24 New Medications: Balsam [place] Oil (Venelex Ointment) 60 Gm Oint...g. 60 GM TP BID for 30 Days, #30 APPL 0 Refills [Zosyn 3.375GM+Ns 50ML] () 3.375 GM/50 ML IV.SOLN 3.375 GM IV Q8H for 10 Days, #10 0 Refills Continued Medications: Aspirin (Aspirin 81 Mg Ectab) 81 Mg Ectab 81 MG PO DAILY, TAB.EC Atorvastatin Calcium (Atorvastatin Calcium) 40 Mg Tablet 40 MG PO DAILY, TAB Cyclobenzaprine HCl (Cyclobenzaprine HCl) 5 Mg Tablet 5 MG PO HS PRN for PAIN, TAB Famotidine (Famotidine) 20 Mg Tablet 20 MG PO HS, TAB Ferrous Sulfate (Iron) 325 Mg (65 Mg Iron) Tablet 325 MG PO TID, TAB Fluoxetine HCl (Fluoxetine HCl) 20 Mg Capsule 20 MG PO DAILY, CAP Furosemide (Furosemide) 40 Mg Tablet 1 TAB PO DAILY Gabapentin (Neurontin) 300 Mg Capsule 900 MG PO TID, CAP Hydroxyzine HCl (Hydroxyzine HCl) 25 Mg Tablet 25 MG PO BID PRN for ITCHING, TAB Meloxicam (Meloxicam) 15 Mg Tablet 15 MG PO DAILY, TAB Pantoprazole Sodium (Pantoprazole Sodium) 40 Mg Tablet.dr 1 TAB PO DAILY Plecanatide (Trulance) 3 Mg Tablet 1 TAB PO DAILY Sennosides/Docusate Sodium (Senexon-S 50-8.6 mg Tablet) 8.6 Mg-50 Mg Tablet 2 EACH PO HS, TAB Sucralfate (Carafate) 1 Gram Tablet 1 TAB PO DAILY Trazodone HCl (Trazodone HCl) 50 Mg Tablet 50 MG PO HS, TAB Zolpidem Tartrate (Ambien) 10 Mg Tablet 1 TAB PO HSPRN PRN for sleep for 30 Days, #30 TAB 0 Refills Time spent arranging discharge: 31-60 minutes ATTESTATION BY PHYSICIAN I have seen and examined the patient. I reviewed the documentation, medical decision making, and treatment plan as noted by the resident above. I agree with the findings and plan of care. Zenon Goncalves MD, RAGHAVA R MD Feb 05, 2025 14:58
[2025-02-05 15:06] LABS: INR 1.08 (0.85-1.15); PROTHROMBIN TIME 11.4 SEC (9.6-11.6)
[2025-02-05] MEDS ORDERED: Zosyn 3.375GM+Ns 50ML IV (15:09)
[2025-02-05] MEDS ORDERED: BALS60OI TP (15:09)
--- NOTE | 2025-02-05 16:19 | PN ---
INFECTIOUS DISEASE PROGRESS NOTE Date of Service: Feb 05, 2025 SUBJECTIVE: [ ] REVIEW OF SYSTEMS CONSTITUTIONAL: Denies fever, chills, or fatigue. HEAD/FACE: No signs of trauma. EENT: Denies eye pain, blurred vision, double vision, or light sensitivity. RESPIRATORY: Denies shortness of breath, cough, wheezing CARDIOVASCULAR: Denies chest pain, palpitation, syncope GASTROINTESTINAL/ABDOMINAL: Denies abdominal pain, constipation, diarrhea, nausea or vomiting GENITOURINARY: Denies dysuria or hematuria. MUSCULOSKELETAL: Denies joint pain, tenderness, or trauma. INTEGUMENTARY: Denies rash or itchiness NEUROLOGICAL/PSYCH: Denies anxiety, depression, heat or cold intolerance. PHYSICAL EXAM EYES: Anicteric. Pupils equal and reactive. HENT: No oral thrush seen, moist Oral mucosa NECK: Supple, no JVD or thyromegaly. LUNGS: Good air entry. No rales, no rhonchi. CARDIOVASCULAR: S1, S2 regular. No murmur heard. ABDOMEN: Soft, non tender, bowel sounds present, no organomegaly CENTRAL NERVOUS SYSTEM: Awake, alert, oriented x 3. No focal deficits. SKIN: No rashes, no swelling. LYMPHATICS: No peripheral lymphadenopathy MUSCULOSKELETAL: No joint swelling, erythema or tenderness. EXTREMITIES: No cyanosis or clubbing BACK: No deformity, no pressure ulcer. GENITOURINARY: No dysuria or hematuria Vital Sign (Last 12 Hours) 02/05/25 02/05/25 08:00 12:00 Temp 98.6 98.4 Pulse 75 82 Resp 18 18 B/P (MAP) 115/53 119/61 Pulse Ox 91 91 O2 Delivery Room Air Room Air Intake & Output (last 24hrs) 02/04/25 02/04/25 02/05/25 15:00 23:00 07:00 Intake Total 100.0 ml Balance 100.0 ml LABS: Laboratory: Test 02/05/25 14:34 02/05/25 11:38 02/05/25 09:50 Range/Units Prothrombin Time 11.4 9.6-11.6 SEC Prothromb Time International Ratio 1.08 0.85-1.15 Whole Blood Glucose 135 H 70-110 MG/DL White Blood Count 7.6 4.8-10.8 K/uL Red Blood Count 4.56 4.00-5.50 MIL/uL Hemoglobin 9.0 L 12.0-16.0 g/dL Hematocrit 33.0 L 36-48 % Mean Corpuscular Volume 72.4 L 79-99 fL Mean Corpuscular Hemoglobin 19.7 L 27.0-33.0 pg Mean Corpuscular Hemoglobin Concent 27.3 L 32.0-36.0 g/dL Red Cell Distribution Width 20.5 H 11.0-15.5 % Platelet Count 373 130-400 K/uL Mean Platelet Volume 8.6 7.5-10.5 fL Immature Granulocyte % (Auto) 0.7 0-1 % Neutrophils (%) (Auto) 79.6 H 40.0-77.0 % Lymphocytes (%) (Auto) 9.7 L 21.0-51.0 % Monocytes (%) (Auto) 3.4 3.0-13.0 % Eosinophils (%) (Auto) 6.3 0.0-8.0 % Basophils (%) (Auto) 0.3 0.0-5.0 % Neutrophils # (Auto) 6.1 1.8-7.7 K/uL Lymphocytes # (Auto) 0.7 L 1.0-4.8 K/uL Monocytes # (Auto) 0.3 0.1-1.0 K/uL Eosinophils # (Auto) 0.48 0.00-0.70 K/uL Basophils # (Auto) 0.02 0.00-0.20 K/uL Absolute Immature Granulocyte (auto 0.05 0-1 K/uL Nucleated Red Blood Cells 0.0 0.0-0.19 % Sodium Level 141 136-145 mmol/L Potassium Level 3.0 *L 3.5-5.1 mmol/L Chloride Level 105 101-111 mmol/L Carbon Dioxide Level 31 21-32 mmol/L Blood Urea Nitrogen 2 L 7-18 mg/dL Creatinine 0.6 0.5-1.0 mg/dL Glomerular Filtration Rate Calc 100 >90 mL/min Random Glucose 150 H 70-105 mg/dL Total Calcium 8.5 8.5-10.1 mg/dL Total Bilirubin 0.3 0.2-1.0 mg/dL Aspartate Amino Transf (AST/SGOT) 9 L 10-37 U/L Alanine Aminotransferase (ALT/SGPT) 6 L 12-78 U/L Alkaline Phosphatase 155 H 50-136 U/L Total Protein 6.2 6.0-8.3 g/dL Albumin 2.5 L 3.5-5.0 g/dL DIAGNOSTICS / RADIOLOGY: ATIENT: GAYLE CHOW ACCT: [id number] LOC: 3DH U: [id number] AGE/SX: 65/F ROOM: [facility] RE01/31/[address]: ANINE COPELNAD MD : 1960 BED: 1 DIS: STATUS: ADM IN TLOC: SPEC: [id number] REN: 01/31/25 STATUS: COMP REQ: [id number] RECD: 02/01/[address]: JOANN WRAY NP SOURCE: [facility] [place] ENTR: 02/01/25 DEB WOOD: NONE SPDESC: CLEAN CAT ORDERED: AERO ID & SENS COMMENTS: CALLED TO NURSE SCHAEFFER 1525 JAKOB 02/02/25 Procedure Result Jose Date-Time AEROBIC ID & SENSITIVITIES Final 02/02/25-0632 MRL EXTENDED SPECTRUM BETA-LACTAMASE ORGANISM IDENTIFIED. CRITICAL RESULT WAS CALLED BY JACE RIDER ON 02/02/25 AT 0630. CRITICAL VALUES WERE READ BACK AND ACKNOWLEDGED BY ALFONSO GUPTA ([facility] COLONY DESCRIPTION: DAY 1: COLONY COUNT: >100,000 CFU/ML GRAM NEGATIVE RODS IDENTIFICATION AND SENSITIVITY TO FOLLOW COMMENTS(R): ESBL KLEBSIELLA PNEUMONIAE K PNEUMO M.I.C. RX --------- ---- AZTREONAM >16 ESBL CEFAZOLIN >16 R* CEFTAZIDIME >16 ESBL CEFTAZIDIME/AVIBACTAM <=8 S CEFTRIAXONE >2 ESBL GENTAMICIN <=2 S LEVOFLOXACIN <=0.5 S NITROFURANTOIN 64 I MEROPENEM <=1 S PIPERACILLIN/TAZOBACTAM <=8 S TRIMETHOPRIM/SUFLAMETHOXAZOLE >2/38 R ASSESSMENT: Urinary tract infection with Klebsiella pneumoniae. Infection with multidrug resistant organism. PLAN: Continue Zosyn IV for 10 days on discharge. This case was reviewed and discussed with my supervising physician and the above assessment and plan was formulated and agreed upon. ATTESTATION BY PHYSICIAN I have seen and examined the patient. I reviewed the documentation, medical decision making, and treatment plan as noted by the mid-level provider above. I agree with the findings and plan of care. BRUCE AKERS MD, MIRTA L [facility] Feb 05, 2025 16:19
[2025-02-05 20:00] VITALS: BP 129/48; PULSE 67; RESP 18; TEMP 98.3
--- NOTE | 2025-02-05 20:11 | NUR ---
ASSISTED EMS TO TRANSFER PATIENT TO STRETCHER. ALL DISCHARGE PAPER WORK GIVEN TO EMS PARAMEDICS AT BEDSIDE WITH REPORT. ALL PATIENT BELONGINGS PLACE ON STRETCHER. IV 22G DC FROM PATIENT'S RIGHT HAND WITH NO COMPLICATIONS.
[2025-02-06] VITALS: BP_SYST 141; BP_DIAS 52; BP_DIAS 68; PULSE 76; PULSE 80; RESP 18; TEMP 98; TEMP 98.4
== END 2025-02-05 20:10 | DRG 698 ==
LOC: EDH 17:48 → EDHIP 20:15 → 3DH 02-01 20:08
PROVIDERS: ADMIT Internal Medicine; ATTEND Internal Medicine
PROC: 05HB33Z Insertion of Infusion Device into Right Basilic Vein, Percutaneous Approach (ICD-10-PCS; principal; 2025-01-31)
DX: T83.511A Infection and inflammatory reaction due to indwelling urethral catheter, initial encounter (principal); G93.41 Metabolic encephalopathy; R53.2 Functional quadriplegia; I48.20 Chronic atrial fibrillation, unspecified; Z16.12 Extended spectrum beta lactamase (ESBL) resistance; N39.0 Urinary tract infection, site not specified; E83.42 Hypomagnesemia; E87.6 Hypokalemia; D50.9 Iron deficiency anemia, unspecified; E88.09 Other disorders of plasma-protein metabolism, not elsewhere classified; E66.01 Morbid (severe) obesity due to excess calories; I34.0 Nonrheumatic mitral (valve) insufficiency; E78.5 Hyperlipidemia, unspecified; B96.1 Klebsiella pneumoniae [K. pneumoniae] as the cause of diseases classified elsewhere; Z68.39 Body mass index [BMI] 39.0-39.9, adult; Z79.899 Other long term (current) drug therapy; Z79.01 Long term (current) use of anticoagulants; Z74.01 Bed confinement status; Y84.6 Urinary catheterization as the cause of abnormal reaction of the patient, or of later complication, without mention of misadventure at the time of the procedure; Y92.89 Other specified places as the place of occurrence of the external cause; Z85.51 Personal history of malignant neoplasm of bladder; Z79.82 Long term (current) use of aspirin; Z91.148 Patient's other noncompliance with medication regimen for other reason; Z91.81 History of falling
CPT/HCPCS: 36415; 70450; 80048; 80053; 81001; 82607; 82948; 83540; 83550; 83735; 83880; 84100; 84132; 84443; 85025; 85610; 85651; 86431; 87040; 87086; 87186; 93005; 93306; 93356; 96365; 96368; 96375; 99285; G0378; J0696; J1650; J2270; J2405; J2543; J3475; J3480